=== PATIENT | female | born 1990 | race Caucasian/White ===

== ENCOUNTER 2016-06-08 18:12 | Emergency (ER) | payer OTHER ==
[2016-06-08 18:19] VITALS: BP 125/70; PULSE 92; TEMP 98.8; BMI 29.2
[2016-06-08 21:12] LABS: BASOPHIL 0.6 % (0-2.0); EOSINOPHIL 1.1 % (0-4.5); MCH 26.2 pg (25.7-33.7); MCHC 32.5 g/dl (32.0-36.0); MEAN CELL VOLUME 80.6 fl (80-96); MEAN PLT VOLUME 8.3 fl (7.5-11.1); NEUTROPHILS 60.5 % (42.8-82.8); PLATELET COUNT 321 K/MM3 (134-434); RDW 16.7 % (11.6-15.6); WHITE BLOOD COUNT 7.9 K/mm3 (4.0-10.0)
--- NOTE | 2016-06-08 22:18 | PDOC ---
[id number] /VAGINAL BLEEDING Time Seen by Provider: 06/08/16 20:25 - History of Present Illness Initial Comments: 06/08/16 22:13 CHIEF COMPLAINT: vaginal bleeding HISTORY OF PRESENT ILLNESS: 25 yo 4 week F with no PMH presents to ED for vaginal bleeding since this afternoon. Patient states she went to [facility] yesterday and was told she was approximately 4 weeks . Today she felt a little cramping to her R side and at 3 pm she went to the bathroom and had vaginal bleeding. She reports "at first it seemed like a lot, and then when I got home from work it seemed to have stopped but there's still a little bleeding." She denies any fever, chills, nausea, vomiting diarrhea, or urinary frequency, pain, or blood in urine. No recent travel or sick contacts. PAST MEDICAL HISTORY: Denies past medical history FAMILY HISTORY: Denies SOCIAL HISTORY: Denies tobacco, alcohol, illicit drug use. SURGICAL HISTORY: Denies ALLERGIES: No known drug allergies REVIEW OF SYSTEMS General/Constitutional: Denies fever or chills. Denies weakness, weight change. HEENT: Denies change in vision. Denies ear pain or discharge. Denies sore throat. Cardiovascular: Denies chest pain or shortness of breath. Respiratory: Denies cough, wheezing, or hemoptysis. Gastrointestinal: Denies nausea, vomiting, diarrhea or constipation. Denies rectal bleeding. Genitourinary: Vaginal bleeding since 3 pm. Denies dysuria, frequency, or change in urination. Musculoskeletal: Denies joint or muscle swelling or pain. Denies neck or back pain. Skin and breasts: Denies rash or easy bruising. Neurologic: Denies headache, vertigo, loss of consciousness, or loss of sensation. PHYSICAL EXAM General Appearance: Well-appearing, appropriately dressed. No apparent distress. HEENT: EOMI, PERRLA. No conjunctival pallor. No photophobia, scleral icterus. Respiratory/Chest: Lungs CTAB. Cardiovascular: RRR. S1, S2. Gastrointestinal/Abdominal: Normal bowel sounds. Abdomen soft, non-distended. No tenderness or rebound tenderness. No organomegaly, pulsatile mass, guarding, hernia, hepatomegaly, splenomegaly. Pelvic: External genitalia normal without lesions. Vaginal vault with moderate amount of bloody discharge. Cervix is long and closed. No cervical motion tenderness. Uterus is nontender and normal in size. Adnexa are nontender and without masses. Lymphatic: No adenopathy, tenderness. Musculoskeletal/Extremities: Normal inspection. FROM of all extremities, normal capillary refill. Pelvis Stable. No CVA tenderness. No tenderness to extremities, pedal edema, swelling, erythema or deformity. Integumentary: Appropriate color, dry, warm. No cyanosis, erythema, jaundice or rash Neurologic: currency examiner II-XII intact. Fully oriented, alert. Appropriate mood/affect. Motor strength 5/5. No appreciable EOM palsy, facial droop or sensory deficit. 06/09/16 00:00 Past History - Past Medical History Allergies/Adverse Reactions: Allergies Allergy/AdvReac Type Severity Reaction Status Date / Time No Known Allergies Allergy Verified 06/08/16 18:16 Home Medications: Ambulatory Orders Iron 325 mg PO DAILY 09/12/15 Cephalexin Monohydrate [Keflex -] 500 mg PO BID #14 capsule 01/30/16 Anemia: Yes Suicide Attempt (Hx): No - Surgical History Appendectomy: Yes - Reproductive History Is Patient Now?: Yes (#): 5 Para: 3 Therapeutic (s) & number: Yes Spontaneous : 2 - Immunization History Immunization Up to Date: Yes - Psycho/Social/Smoking Cessation Hx Anxiety: No Suicidal Ideation: No Smoking History: Never smoked Have you smoked in the past 12 months: No Information on smoking cessation initiated: No Hx Alcohol Use: No Drug/Substance Use Hx: No Substance Use Type: None *Physical Exam - Vital Signs Last Vital Signs Temp Pulse Resp BP Pulse Ox 98.8 F 92 H 18 125/70 100 06/08/16 18:17 06/08/16 18:17 06/08/16 18:17 06/08/16 18:17 06/08/16 18:17 ED Treatment Course - LABORATORY CBC & Chemistry Diagram: 06/08/16 20:56 - ADDITIONAL ORDERS Additional order review: Laboratory Results 06/08/16 06/08/16 20:56 20:46 Beta HCG, Quant 986.8 Blood Type O POSITIVE Antibody Screen Negative 06/08/16 20:56 RBC 3.95 MCV 80.6 MCHC 32.5 RDW 16.7 H D MPV 8.3 Neutrophils % 60.5 Lymphocytes % 28.7 Monocytes % 9.1 Eosinophils % 1.1 Basophils % 0.6 - RADIOLOGY Radiology Studies Ordered: Category Date Time Status TRANSVAGINAL US PREG [US] Stat Ultrasound 06/08/16 20:48 Ordered Medical Decision Making - Medical Decision Making 06/08/16 22:17 25 yo 4 wk F presents to ED with vaginal bleeding since this afternoon. -CBC, CMP, T&S, beta hCG -TV US beta hcg 938 Patient's blood type is O+, no indication for Rhogam. Ultrassound results: Uterus is anteverted and measures 9.2centimeters in length early IUP with estimated age of 5 weeks and 6 days. There is no heart rate , possibly due to early gestational age. No subchorionic bleed identified. The right ovary measures 2.2centimeters in length, appears normal and demonstrates normal flow. Left ovary measures 1.9centimeters in length appears normal demonstrates normal flow. There is no significant free fluid. Pelvic duplex: There is normal arterial and venous flow in both ovaries. IMPRESSION: Single IUP with estimated age 5 weeks status without cardiac motion, possibly due to very early . Recommend followup sonography to ensure viability. Read by Loco Aponte MD 06/08/2016 23:14 EST Advised patient that she MUST return to ER for repeat bloodwork in 2 days to monitor progress of . Advised patient of signs and symptoms for return to ER; patient verbalized understanding and agrees to plan. \\ *DC/Admit/Observation/Transfer Diagnosis at time of Disposition: Threatened in early - Discharge Dispostion Disposition: HOME Admit: No - Referrals Referrals: Peyton Joel [Primary Care Provider] - Olaf Mancini MD [Staff Physician] - - Patient Instructions Printed Discharge Instructions: DI for Threatened Additional Instructions: You MUST follow-up in 2 days for a repeat blood test in order to monitor the progress of your . If you experience severe vaginal bleeding (more than one soaked pad an hour), severe pain to one side, persistent vomiting or diarrhea, fever, or any new or worsening symptoms, please return to the ER.
== END 2016-06-09 00:34 | disposition home or self-care (01) ==
LOC: JER 18:12
DX: O20.0 Threatened abortion (principal); Z3A.01 Less than 8 weeks gestation of pregnancy
CPT/HCPCS: 36415; 76817-TC; 84702; 85025; 86850; 86900; 86901; 87491; 87591; 99282-25

== ENCOUNTER 2016-08-23 13:44 | Emergency (ER) | payer OTHER ==
[2016-08-23 13:52] VITALS: BP 141/91; PULSE 125; TEMP 99; BMI 32.0
--- NOTE | 2016-08-23 13:59 | PDOC ---
History of Present Illness - General Chief Complaint: Respiratory Stated Complaint: COLD SYMPTOMS Time Seen by Provider: 08/23/16 13:56 History Source: Patient - History of Present Illness Initial Comments: 08/23/16 14:16 Pt. is a 25 y/o female with a PMH of anemia, presenting to the ED complaining of cough. She also presents for HIV testing at this time. Pt. states her cough started 3 days ago. States it is a dry, non-productive cough. Admits to rhinorrhea, dry eyes, and sneezing. Denies history of seasonal allergies. Denies fevers, chills, weight change, chest pain, palpitations, SOB, wheezing, N /V/D. Pt. presents for HIV testing today. 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 She is nervous that she has HIV. Denies blood to blood transmission, needle sticks, or saliva transmission. Past History - Past Medical History Allergies/Adverse Reactions: Allergies Allergy/AdvReac Type Severity Reaction Status Date / Time No Known Allergies Allergy Verified 08/23/16 13:49 Home Medications: Ambulatory Orders Iron 325 mg PO DAILY 09/12/15 Cephalexin Monohydrate [Keflex -] 500 mg PO BID #14 capsule 01/30/16 Anemia: Yes Suicide Attempt (Hx): No - Surgical History Appendectomy: Yes - Reproductive History (#): 5 Para: 3 Therapeutic (s) & number: Yes Spontaneous : 2 - Immunization History Immunization Up to Date: Yes - Psycho/Social/Smoking Cessation Hx Anxiety: No Suicidal Ideation: No Smoking History: Never smoked Have you smoked in the past 12 months: No Information on smoking cessation initiated: No Hx Alcohol Use: No Drug/Substance Use Hx: No Substance Use Type: None *Physical Exam - Vital Signs Last Vital Signs Temp Pulse Resp BP Pulse Ox 99 F 125 H 20 141/91 100 08/23/16 13:49 08/23/16 13:49 08/23/16 13:49 08/23/16 13:49 08/23/16 13:49 - Physical Exam General Appearance: Yes: Nourished, Appropriately Dressed HEENT: positive: EOMI, BELINDA, Normal Voice, Pharynx Normal, Nasal Congestion, Rhinorrhea, TM Dull (Serous fluid present behind both TM's ). negative: Tonsillar Exudate, Tonsillar Erythema, TM Bulging, TM Erythema Neck: positive: Trachea midline, Normal Thyroid, Supple. negative: Tender, Lymphadenopathy (R), Lymphadenopathy (L) Respiratory/Chest: positive: Lungs Clear, Normal Breath Sounds. negative: Respiratory Distress, Accessory Muscle Use, Rales, Rhonchi, Wheezing Cardiovascular: positive: Regular Rhythm, Regular Rate, S1, S2 (present) Neurologic: positive: distribution center associate II-XII NML intact, Fully Oriented, Alert, Normal Mood/ Affect, Normal Response, Motor Strength 5/5 Medical Decision Making - Medical Decision Making 08/23/16 14:43 Pt. is a 25 y/o female with a PMH of anemia who presents with cough and wanting HIV testing. Based on exam and history, cough seems to be allergy related. Will give decongestant now. Recommend pt take an antihistamine as an out patient. Will order HIV rapid testing. 08/23/16 15:22 HIV is negative at this time. Pt. was made aware of results and education regarding transmission was given. Will discharge home at this time. *DC/Admit/Observation/Transfer Diagnosis at time of Disposition: Encounter for HIV (human immunodeficiency virus) test Seasonal allergic rhinitis Qualifiers: Allergic rhinitis trigger: unspecified Qualified Code(s): J30.2 - Other seasonal allergic rhinitis - Discharge Dispostion Disposition: HOME Condition at time of disposition: Stable Admit: No - Referrals Referrals: Cyrus Joel MD [Primary Care Provider] - - Patient Instructions Additional Instructions: Your testing today was negative. You also have seasonal allergies that are causing your cough. Take an over the counter histamine such as Claratin or Zyrtec daily to help your symptoms. You may also use an over the counter nasal spray such as Nasonex to help with your congestion. If you develop worsening symptoms such as increasing cough, difficulty breathing , or shortness of breath, return to the ED.
[2016-08-23] MEDS ORDERED: guaiFENesin 200 MG/10 ML 10 ML UNIT-DOSE CUPS PO ONE (14:12)
[2016-08-23] MEDS ORDERED: guaiFENesin/D-METHORPHAN HB 10 ML UNIT-DOSE CUPS ONE (14:15)
[2016-08-23 15:16] LABS: HIV 1 & 2 AB NEGATIVE; HIV 1 AGp24 NEGATIVE
== END 2016-08-23 15:32 | disposition home or self-care (01) ==
LOC: JERFT 13:44
DX: J30.2 Other seasonal allergic rhinitis (principal)
CPT/HCPCS: 36415; 87389; 99281-25

== ENCOUNTER 2017-05-01 18:10 | Emergency (ER) | payer OTHER ==
[2017-05-01 18:20] VITALS: BP 115/71; PULSE 99; TEMP 98.4; BMI 30.2
--- NOTE | 2017-05-01 18:22 | PDOC ---
Rapid Medical Evaluation Chief Complaint: Lightheaded Time Seen by Provider: 05/01/17 18:21 Medical Evaluation: Allergies Allergy/AdvReac Type Severity Reaction Status Date / Time No Known Allergies Allergy Verified 05/01/17 18:20 Vital Signs Temp Pulse Resp BP Pulse Ox 98.4 F 99 H 19 115/71 100 05/01/17 18:17 05/01/17 18:17 05/01/17 18:17 05/01/17 18:17 05/01/17 18:17 05/01/17 18:21 The patient presents with a chief complaint of: Dizziness, lightheadedness for one day. 22 weeks with twins. No vaginal bleeding, abdominal pain. I have performed a brief in-person evaluation of this patient; Pertinent physical exam findings: Tachycardic at 99 I have ordered the following: CBC, CMP, UA, UC The patient will proceed to the ED for further evaluation. Discharge Disposition - Diagnosis Dizziness - Discharge Dispostion Disposition: HOME Condition at time of disposition: Stable - Prescriptions Prescriptions: Metoclopramide HCl [Reglan] 10 mg PO QID #30 tablet - Referrals Referrals: Dereje Hawkins MD [Staff Physician] - Cyrus Joel MD [Primary Care Provider] - - Patient Instructions Printed Discharge Instructions: DI for Dizziness-Nonvertigo Additional Instructions: Follow up with your doctor ( water resource agent) or the one provided to you. Please eat well. Rest, drink fluids to maintain strength. Return if any problems. - Post Discharge Activity
[2017-05-01 19:39] LABS: URINE APPEARANCE SLCLOUDY; URINE BILIRUBIN NEGATIVE (NEGATIVE); URINE BLOOD NEGATIVE (NEGATIVE); URINE COLOR YELLOW; URINE GLUCOSE (UA) NEGATIVE (NEGATIVE); URINE KETONE NEGATIVE (NEGATIVE); URINE LEUK ESTERASE NEGATIVE (NEGATIVE); URINE NITRITE NEGATIVE (NEGATIVE); URINE PROTEIN NEGATIVE (NEGATIVE); URINE UROBILINOGEN NEGATIVE mg/dL (0.2-1.0)
[2017-05-01 20:04] LABS: CHLORIDE 104 mmol/L (98-107); POTASSIUM 3.4 mmol/L (3.5-5.1); SODIUM 136 mmol/L (136-145)
[2017-05-01 20:07] LABS: HEMATOCRIT 32.7 % (32.4-45.2); HEMOGLOBIN 10.7 GM/dL (10.7-15.3); MCH 28.2 pg (25.7-33.7); MCHC 32.6 g/dl (32.0-36.0); MEAN CELL VOLUME 86.6 fl (80-96); PLATELET COUNT 244 K/MM3 (134-434); RBC 3.77 M/mm3 (3.60-5.2); RDW 13.5 % (11.6-15.6); WHITE BLOOD COUNT 16.3 K/mm3 (4.0-10.0)
[2017-05-01 20:08] LABS: BASO % 0.1 % (0-2.0); EOS % 0.5 % (0-4.5); LYMPH % 9.7 % (8-40); MEAN PLT VOLUME 8.5 fl (7.5-11.1); MONO % 6.2 % (3.8-10.2); NEUT % 83.5 % (42.8-82.8)
[2017-05-01 20:22] LABS: ALBUMIN 2.7 g/dl (3.4-5.0); ALK PHOS 110 U/L (45-117); ANION GAP 7 (8-16); BILIRUBIN,TOTAL 0.3 mg/dL (0.2-1.0); BLOOD UREA NITROGEN 5 mg/dL (7-18); CALCIUM 9.3 mg/dL (8.5-10.1); CO2 25 mmol/L (21-32); CREATININE 0.5 mg/dL (0.55-1.02); GLUCOSE,RANDOM 85 mg/dL (74-106); SGOT/AST 14 U/L (15-37); SGPT/ALT 15 U/L (12-78); TOT PROT 6.8 g/dl (6.4-8.2)
--- NOTE | 2017-05-01 21:57 | PDOC ---
History of Present Illness - General History Source: Patient <Awais Lora - Last Filed: 05/01/17 22:05> - General History Source: Patient Exam Limitations: No Limitations - History of Present Illness Initial Comments: 05/01/17 22:11 The patient is a 26 year old female who is 22 weeks with a significant PMH of anemia and chronic pelvic/back pain since the onset of this most recent who presents to the emergency department with 2 episodes of dizziness earlier today. The patient reports that her first episode was at 11AM, where she stood up from a sitting position and felt dizzy with associated shortness of breath that resolved on its own. She reports her second episode of dizziness was this afternoon which did not include shortness of breath. She denies any alleviating or aggravating factors. The patient denies dizziness at presentation. She also notes decreased appetite within the past 2 weeks. The patient reports she is on pre-ezra vitamins and iron currently. The patient denies any vaginal bleeding or discharge. The patient denies chest pain and headache. Denies fever, chills, nausea, vomit, diarrhea and constipation. Denies dysuria, frequency, urgency and hematuria. Allergies: NKA Past surgical history: Appendectomy. Social history: No reported cigarette, alcohol, or drug use. PCP: Dr. Cyrus Joel <Rainer Fuentes - Last Filed: 05/01/17 22:12> - General Chief Complaint: Lightheaded Stated Complaint: DIZZINESS/22 WKS Time Seen by Provider: 05/01/17 18:21 Past History - Past Medical History Anemia: Yes COPD: No - Surgical History Appendectomy: Yes - Reproductive History (#): 5 Para: 3 Therapeutic (s) & number: Yes Spontaneous : 2 - Immunization History Immunization Up to Date: Yes - Suicide/Smoking/Psychosocial Hx Smoking History: Never smoked Have you smoked in the past 12 months: No Information on smoking cessation initiated: No Hx Alcohol Use: No Drug/Substance Use Hx: No Substance Use Type: None <Awais Lora - Last Filed: 05/01/17 22:05> <Rainer Fuentes - Last Filed: 05/01/17 22:12> - Past Medical History Allergies/Adverse Reactions: Allergies Allergy/AdvReac Type Severity Reaction Status Date / Time No Known Allergies Allergy Verified 05/01/17 18:20 Home Medications: Ambulatory Orders Iron 325 mg PO DAILY 09/12/15 Metoclopramide HCl [Reglan] 10 mg PO QID #30 tablet 05/01/17 Prenat 115/Iron Fum/Folic/Dss [ 19 Tablet] 1 each PO DAILY 05/01/17 Review of Systems - Review of Systems Able to Perform ROS?: Yes Comments:: 05/01/17 22:11 CONSTITUTIONAL: (+) Reduced appetite. Absent: fever, chills, diaphoresis, generalized weakness, malaise HEENT: Absent: rhinorrhea, nasal congestion, throat pain, throat swelling, difficulty swallowing, mouth swelling, ear pain, eye pain, visual Changes CARDIOVASCULAR: Absent: chest pain, syncope, palpitations, irregular heart rate, lightheadedness , peripheral edema RESPIRATORY: Absent: cough, shortness of breath, dyspnea with exertion, orthopnea, wheezing, stridor, hemoptysis GASTROINTESTINAL: Absent: abdominal pain, abdominal distension, nausea, vomiting, diarrhea, constipation, melena, hematochezia GENITOURINARY: Absent: dysuria, frequency, urgency, hesitancy, hematuria, flank pain, genital pain MUSCULOSKELETAL: Absent: myalgia, arthralgia, joint swelling SKIN: Absent: rash, itching, pallor HEMATOLOGIC/IMMUNOLOGIC: Absent: easy bleeding, easy bruising, lymphadenopathy, frequent infections ENDOCRINE: Absent: unexplained weight gain, unexplained weight loss, heat intolerance, cold intolerance NEUROLOGIC: (+) 2 episodes of dizziness today. Absent: headache, focal weakness or paresthesias, unsteady gait, seizure, mental status changes, bladder or bowel incontinence PSYCHIATRIC: Absent: anxiety, depression, suicidal or homicidal ideation, hallucinations. <Rainer Fuentes - Last Filed: 05/01/17 22:12> *Physical Exam - Vital Signs Last Vital Signs Temp Pulse Resp BP Pulse Ox 98.4 F 99 H 115/71 100 05/01/17 18:17 05/01/17 18:17 05/01/17 18:17 05/01/17 18:17 05/01/17 18:17 <Awais Lora - Last Filed: 05/01/17 22:05> - Vital Signs Last Vital Signs Temp Pulse Resp BP Pulse Ox 98.4 F 99 H 19 115/71 100 05/01/17 18:17 05/01/17 18:17 05/01/17 18:17 05/01/17 18:17 05/01/17 18:17 - Physical Exam Comments: 05/01/17 22:11 GENERAL: Well developed, well nourished. Awake and alert. No acute distress. HEENT: Normocephalic, atraumatic. PERRLA, EOMI. No conjunctival pallor. Sclera are non- icteric. Moist mucous membranes. Oropharynx is clear. NECK: Supple. Full ROM. No JVD. Carotid pulses 2+ and symmetric, without bruits. No thyromegaly. No lymphadenopathy. CARDIOVASCULAR: Regular rate and rhythm. No murmurs, rubs, or gallops. Distal pulses are 2+ and symmetric. PULMONARY: No evidence of respiratory distress. Lungs clear to auscultation bilaterally. No wheezing, rales or rhonchi. ABDOMINAL: Soft. Non-tender. Non-distended. No rebound or guarding. No organomegaly. Normoactive bowel sounds. MUSCULOSKELETAL Normal range of motion at all joints. No bony deformities or tenderness. No CVA tenderness. EXTREMITIES: No cyanosis. No clubbing. No edema. No calf tenderness. SKIN: Warm and dry. Normal capillary refill. No rashes. No jaundice. NEUROLOGICAL: Alert, awake, appropriate. Cranial nerves 2-12 intact. No deficits to light touch and temperature in face, upper extremities and lower extremities. No motor deficits in the in face, upper extremities and lower extremities. Normoreflexic in the upper and lower extremities. Normal speech. Toes are down- going bilaterally. Gait is normal without ataxia. PSYCHIATRIC: Cooperative. Good eye contact. Appropriate mood and affect. <Rainer Fuentes - Last Filed: 05/01/17 22:12> ED Treatment Course - LABORATORY CBC & Chemistry Diagram: 05/01/17 19:03 05/01/17 19:03 - ADDITIONAL ORDERS Additional order review: Laboratory Results 05/01/17 05/01/17 19:03 18:50 Sodium 136 Potassium 3.4 L Chloride 104 Carbon Dioxide 25 Anion Gap 7 L BUN 5 L Creatinine 0.5 L Creat Clearance w eGFR > 60 Random Glucose 85 Calcium 9.3 Total Bilirubin 0.3 D AST 14 L ALT 15 Alkaline Phosphatase 110 Total Protein 6.8 Albumin 2.7 L Urine Color Yellow Urine Appearance Slcloudy Urine pH 6.0 Ur Specific Bradshaw 1.016 Urine Protein Negative Urine Glucose (UA) Negative Urine Ketones Negative Urine Blood Negative Urine Nitrite Negative Urine Bilirubin Negative Urine Urobilinogen Negative Ur Leukocyte Esterase Negative 05/01/17 19:03 RBC 3.77 MCV 86.6 MCHC 32.6 RDW 13.5 D MPV 8.5 Neutrophils % 83.5 H D Lymphocytes % 9.7 D Monocytes % 6.2 Eosinophils % 0.5 Basophils % 0.1 <Awais Lora - Last Filed: 05/01/17 22:05> - LABORATORY CBC & Chemistry Diagram: 05/01/17 19:03 05/01/17 19:03 - ADDITIONAL ORDERS Additional order review: Laboratory Results 05/01/17 05/01/17 19:03 18:50 Sodium 136 Potassium 3.4 L Chloride 104 Carbon Dioxide 25 Anion Gap 7 L BUN 5 L Creatinine 0.5 L Creat Clearance w eGFR > 60 Random Glucose 85 Calcium 9.3 Total Bilirubin 0.3 D AST 14 L ALT 15 Alkaline Phosphatase 110 Total Protein 6.8 Albumin 2.7 L Urine Color Yellow Urine Appearance Slcloudy Urine pH 6.0 Ur Specific Bradshaw 1.016 Urine Protein Negative Urine Glucose (UA) Negative Urine Ketones Negative Urine Blood Negative Urine Nitrite Negative Urine Bilirubin Negative Urine Urobilinogen Negative Ur Leukocyte Esterase Negative 05/01/17 19:03 RBC 3.77 MCV 86.6 MCHC 32.6 RDW 13.5 D MPV 8.5 Neutrophils % 83.5 H D Lymphocytes % 9.7 D Monocytes % 6.2 Eosinophils % 0.5 Basophils % 0.1 <Rainer Fuentes - Last Filed: 05/01/17 22:12> Medical Decision Making - Medical Decision Making 05/01/17 22:08 Dr. Lora: The scribe's documentation has been prepared under my direction and personally reviewed by me in its entirery. I confirm that the note above accurately reflects all work, treatment, procedures, and medical decision making performed by me. <Awais Lora - Last Filed: 05/01/17 22:05> *DC/Admit/Observation/Transfer - Discharge Dispostion Admit: No <Awais Lora - Last Filed: 05/01/17 22:05> - Attestations Scribe Attestion: 05/01/17 22:12 Documentation prepared by Rainer Fuentes, acting as medical director of hospice for Awais Lora DO. <Rainer Fuentes - Last Filed: 05/01/17 22:12> Diagnosis at time of Disposition: Dizziness - Discharge Dispostion Disposition: HOME Condition at time of disposition: Stable - Prescriptions Prescriptions: Metoclopramide HCl [Reglan] 10 mg PO QID #30 tablet - Referrals Referrals: Cyrus Joel MD [Primary Care Provider] - Dereje Hawkins MD [Staff Physician] - - Patient Instructions Printed Discharge Instructions: DI for Dizziness-Nonvertigo Additional Instructions: Follow up with your doctor ( casino floor walker) or the one provided to you. Please eat well. Rest, drink fluids to maintain strength. Return if any problems. - Post Discharge Activity
== END 2017-05-01 22:30 | disposition home or self-care (01) ==
LOC: JER 18:10
DX: O26.892 Other specified pregnancy related conditions, second trimester (principal); R42 Dizziness and giddiness; Z3A.22 22 weeks gestation of pregnancy
CPT/HCPCS: 36415; 80053; 81003; 85025; 87086; 99282-25

== ENCOUNTER 2017-05-08 08:51 | Emergency (ER) | payer OTHER ==
[2017-05-08 08:59] VITALS: BMI 29.2
[2017-05-08 11:22] LABS: URINE APPEARANCE SLCLOUDY; URINE BILIRUBIN NEGATIVE (NEGATIVE); URINE BLOOD NEGATIVE (NEGATIVE); URINE COLOR LTYELLOW; URINE GLUCOSE (UA) NEGATIVE (NEGATIVE); URINE KETONE NEGATIVE (NEGATIVE); URINE LEUK ESTERASE NEGATIVE (NEGATIVE); URINE NITRITE NEGATIVE (NEGATIVE); URINE PROTEIN NEGATIVE (NEGATIVE); URINE UROBILINOGEN NEGATIVE mg/dL (0.2-1.0)
[2017-05-08 11:24] LABS: BASO % 0.1 % (0-2.0); EOS % 0.5 % (0-4.5); HEMATOCRIT 29.5 % (32.4-45.2); HEMOGLOBIN 9.6 GM/dL (10.7-15.3); LYMPH % 9.9 % (8-40); MCH 27.5 pg (25.7-33.7); MCHC 32.5 g/dl (32.0-36.0); MEAN CELL VOLUME 84.4 fl (80-96); MEAN PLT VOLUME 8.1 fl (7.5-11.1); MONO % 6.6 % (3.8-10.2); NEUT % 82.9 % (42.8-82.8); PLATELET COUNT 210 K/MM3 (134-434); RDW 13.7 % (11.6-15.6); WHITE BLOOD COUNT 14.8 K/mm3 (4.0-10.0)
[2017-05-08] MEDS ORDERED: DEXTROSE 5%-LACTATED RINGERS 1,000 ML IV SCH (11:45)
[2017-05-08 11:46] LABS: ALBUMIN 2.5 g/dl (3.4-5.0); ANION GAP 9 (8-16); CALCIUM 9.1 mg/dL (8.5-10.1); CHLORIDE 106 mmol/L (98-107); CO2 24 mmol/L (21-32); GLUCOSE,RANDOM 70 mg/dL (74-106); POTASSIUM 3.4 mmol/L (3.5-5.1); SODIUM 139 mmol/L (136-145)
[2017-05-08 11:51] LABS: ALK PHOS 105 U/L (45-117); BILIRUBIN,TOTAL 0.5 mg/dL (0.2-1.0); CREATININE 0.3 mg/dL (0.55-1.02); SGOT/AST 15 U/L (15-37); SGPT/ALT 16 U/L (12-78); TOT PROT 6.3 g/dl (6.4-8.2)
[2017-05-08 11:53] LABS: BLOOD UREA NITROGEN 2 mg/dL (7-18)
[2017-05-08 15:06] VITALS: BP 112/60; PULSE 81; TEMP 98.1
== END 2017-05-08 14:05 | disposition home or self-care (01) ==
LOC: JER 08:51
DX: O26.892 Other specified pregnancy related conditions, second trimester (principal); R10.30 Lower abdominal pain, unspecified; Z3A.23 23 weeks gestation of pregnancy
CPT/HCPCS: 36415; 80053; 81003; 85025; 99281-25

== ENCOUNTER 2017-07-26 23:55 | Inpatient (IN) | payer OTHER ==
[2017-07-27] MEDS ORDERED: DEXTROSE 5%-LACTATED RINGERS 1,000 ML IV SCH ×2 (01:00→07:30)
--- NOTE | 2017-07-27 01:00 | HP ---
Past Medical History - Primary Care Physician PCP:: Kym Monteiro - Admission Chief Complaint: 26 yrs , edc 09/01/17 34.6 weeks , twins gestation c/o pain ( UC ) since 5.00 PM on 07/26/17. no c/o headache. c/o acid reflux. no c/ o urine symptoms History of Present Illness: pnc at , [facility] wt gain 14 lbs pt was evaluated on 07/24/17 in L &D by Dr Hawkins for threatened PTL & elevated BP she was given iV hydration & one inj of Terbutaline . Hellp work up was wnl , plt 163, , uric acid 6.9, sgot/ast-23, sgpt/alt -8, ggt 7, urine protein neg. Nst was cat-1 for both babies. BP range was 130-145 systolic/88-92 diastolic bp max was 147/96 pt has follow up with M for serial sonogram for growth Diamniotic dizygotic Twins ,Neg NT screen, Neg Moodified sequential last sono as per pt was on 07/23/17 no report available . 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 Weeks Gestation by Dates: 34.6 ...EDC by Dates: 09/01/17 ...EDC by Sono: 09/01/17 (Twins ) Heme/Onc: Yes: Anemia (non compliant with pnv & iron & diet) Infectious Disease: No: AIDS, HIV, STD's Psych: Yes: Other (declines) - Past Surgical History Past Surgical History: Yes: Appendectomy (2006) Hx Myomectomy: No Hx Transabdominal Cerclage: No - Smoking History Smoking history: Never smoked Have you smoked in the past 12 months: No - Alcohol/Substance Use Hx Alcohol Use: No History of Substance Use: reports: None Home Medications - Allergies Allergies/Adverse Reactions: Allergies Allergy/AdvReac Type Severity Reaction Status Date / Time No Known Allergies Allergy Verified 07/27/17 07:01 - Home Medications Home Medications: Ambulatory Orders Vit Calc,Iron,Folic [ Vitamins] 1 tab PO DAILY 07/27/17 Physical Exam - Maternity Vital Signs: Bp Constitutional: Yes: Moderate Distress Eyes: Yes: WNL HENT: Yes: WNL, Normocephalic Neck: Yes: WNL Cardiovascular: Yes: WNL, Murmur (systol) Lungs: Clear to auscultation Breast(s): Yes: WNL - Abdominal Exam/OB Fundal Height: 44 Number of Fetuses: Multiple Presentation: Vertex, Breech Contractions: Yes Regularity: Regular (3-5 min) Intensity: Moderate Monitor Mode: External Heart Rate (range): 157/146 Heart Rate Location: LUQ, RLQ Category: I Accelerations: Uniform Decelerations: None - Vaginal Exam/OB Vaginal Bleediing: No Speculum Exam: No Dilatation (cm): close Effacement (%): unefface Presentation: Vertex/Position Station: -3 - Physical Exam Musculoskeletal: Yes: WNL Extremities: Yes: WNL. No: Calf Tenderness Edema: LLE: Trace, RLE: Trace Deep Tendon Reflex Grade: Normal +2 Psychiatric: Yes: WNL, Alert, Oriented Problem List - Problems (1) with 34 completed weeks gestation Code(s): Z3A.34 - 34 WEEKS GESTATION OF (2) Twin , twins dichorionic and diamniotic Code(s): O30.049 - TWIN , DICHORIONIC/DIAMNIOTIC, UNSP TRIMESTER Qualifiers: Trimester: third trimester Qualified Code(s): O30.043 - Twin , dichorionic/diamniotic, third trimester (3) Threatened labor Code(s): O47.00 - FALSE LABOR BEFORE 37 COMPLETED WEEKS OF GEST, UNSP TRI (4) Gestational hypertension Code(s): O13.9 - GESTATIONAL HTN W/O SIGNIFICANT PROTEINURIA, UNSP TRIMESTER (5) Iron deficiency anemia due to dietary causes Code(s): D50.8 - OTHER IRON DEFICIENCY ANEMIAS Assessment/Plan 26 yrs , 34.6 weeks , twins cep/breech/ threatened PTL , gestational HTN , r/o preclempsia Plan iv hydration 200 ml/hr Procardia PRN for PTL Betamethasone 12.5 mg Iv reglan sono done prelimnary report : Twin A cephalic: Rt side, Post placenta, STEPHAN 6.1 cm, EFW 5'10" GA 34.2 wks Twin B Breech Lt side Ant Placenta, STEPHAN 7.4 cm,EFW 5'9" GA 35 wks cervical length 2.9 cm .
[2017-07-27 01:22] LABS: BASO % 0.2 % (0-2.0); EOS % 0.4 % (0-4.5); HEMATOCRIT 29.7 % (32.4-45.2); HEMOGLOBIN 9.4 GM/dL (10.7-15.3); LYMPH % 17.1 % (8-40); MCH 23.1 pg (25.7-33.7); MCHC 31.5 g/dl (32.0-36.0); MEAN CELL VOLUME 73.2 fl (80-96); MEAN PLT VOLUME 9.1 fl (7.5-11.1); MONO % 6.2 % (3.8-10.2); NEUT % 76.1 % (42.8-82.8); PLATELET COUNT 149 K/MM3 (134-434); RBC 4.06 M/mm3 (3.60-5.2); RDW 17.5 % (11.6-15.6); WHITE BLOOD COUNT 12.1 K/mm3 (4.0-10.0)
[2017-07-27 01:24] LABS: URINE APPEARANCE CLEAR; URINE BILIRUBIN NEGATIVE (<2.0 mg/dL); URINE BLOOD NEGATIVE (NEGATIVE); URINE COLOR STRAW; URINE GLUCOSE (UA) NEGATIVE (NEGATIVE); URINE KETONE NEGATIVE (NEGATIVE); URINE LEUK ESTERASE NEGATIVE (NEGATIVE); URINE NITRITE NEGATIVE (NEGATIVE); URINE PROTEIN NEGATIVE (NEGATIVE); URINE UROBILINOGEN NEGATIVE mg/dL (0.2-1.0)
[2017-07-27] MEDS ORDERED: METOCLOPRAMIDE HCL INJECTION 10 MG/2 ML VIAL IVPB ONE (01:28)
[2017-07-27] MEDS ORDERED: BETAMET ACET/BETAMET NA PH 30 MG/5 ML VIAL IM SCH (01:29)
[2017-07-27] MEDS ORDERED: BETAMET ACET/BETAMET NA PH 30 MG/5 ML VIAL ONE (01:33)
[2017-07-27] MEDS ORDERED: NIFEdipine 10 MG CAPSULE (FP) PO ONE ×4 (01:50→05:30)
[2017-07-27 02:09] LABS: ALBUMIN 2.4 g/dl (3.4-5.0); ANION GAP 13 (8-16); BILIRUBIN,TOTAL 0.5 mg/dL (0.2-1.0); BLOOD UREA NITROGEN 5 mg/dL (7-18); CALCIUM 9.7 mg/dL (8.5-10.1); CHLORIDE 105 mmol/L (98-107); CO2 23 mmol/L (21-32); CREATININE 0.6 mg/dL (0.55-1.02); GLUCOSE,RANDOM 64 mg/dL (74-106); POTASSIUM 3.6 mmol/L (3.5-5.1); SGOT/AST 23 U/L (15-37); SGPT/ALT 11 U/L (12-78); SODIUM 141 mmol/L (136-145); TOT PROT 6.6 g/dl (6.4-8.2); URIC ACID 6.5 mg/dL (2.6-7.2)
[2017-07-27 02:10] LABS: ALK PHOS 296 U/L (45-117)
[2017-07-27] MEDS ORDERED: NIFEdipine 10 MG CAPSULE (FP) ONE ×2 (02:46→03:43)
[2017-07-27] MEDS ORDERED: MAGNESIUM 4GM/H20 - 4 GM/100 ML IVPB IVPB SCH (07:30)
[2017-07-27] MEDS ORDERED: ONDANSETRON 4 MG/2 ML VIAL IVPB ONE (07:43)
--- NOTE | 2017-07-27 07:55 | PN ---
Progress Note (short form) - Note Progress Note: After IV hydration pt continued to have UC hence she received Po Procardia at 2.47 AM, , 3.46am, 5.36 AM she received IV reglan 10 mg once pt continues to have uc 2-4 min , FHR Baby A : cat-1 , Baby B cat-1 pt continues to have nausea & vomiting, mainly spitting she is uncomfortable repeat pelvic exam was done at 7.15 AM cx close , post, [place] , vx -3 Reflexes n/n . Selected Entries v/s pulse varies bet 104 to 126 BP 129/74 , 127/67,139/84 07/27/17 00:19 Temperature 98.9 F Pulse Rate [ 88 Left Brachial] Blood Pressure 146/80 [Left Upper Arm ] Laboratory Tests 07/24/17 07/24/17 07/27/17 12:00 12:05 01:10 WBC 12.1 H Hgb 9.4 L Hct 29.7 L Plt Count 149 Neutrophils % 76.1 Lymphocytes % 17.1 D Uric Acid 6.9 GGT 7 AST 23 ALT 8 L Urine Protein Negative Ur Leukocyte Esterase Trace 07/27/17 01:10 WBC Hgb Hct Plt Count Neutrophils % Lymphocytes % Uric Acid GGT AST ALT Urine Protein Negative Ur Leukocyte Esterase Laboratory Tests 07/27/17 01:10 Sodium 141 Potassium 3.6 Chloride 105 Carbon Dioxide 23 BUN 5 L Creatinine 0.6 Random Glucose 64 L Uric Acid 6.5 Calcium 9.7 AST 23 ALT 11 L Laboratory Tests 07/27/17 01:10 Urine Protein Negative Ass 35 weeks, twins( vx /Br) s/p iv hydration & po procardia , not responding to out patient management Plan Admit The patient , start IV MgSo4 4 gm loading dose followed by 2 gm/hr -Attempt tocolysis Repeat 2 nd dose of Im Betametasone in 24 hrs Problem List - Problems (1) with 34 completed weeks gestation Code(s): Z3A.34 - 34 WEEKS GESTATION OF (2) Twin , twins dichorionic and diamniotic Code(s): O30.049 - TWIN , DICHORIONIC/DIAMNIOTIC, UNSP TRIMESTER Qualifiers: Trimester: third trimester Qualified Code(s): O30.043 - Twin , dichorionic/diamniotic, third trimester (3) Threatened labor Code(s): O47.00 - FALSE LABOR BEFORE 37 COMPLETED WEEKS OF GEST, UNSP TRI (4) Gestational hypertension Code(s): O13.9 - GESTATIONAL HTN W/O SIGNIFICANT PROTEINURIA, UNSP TRIMESTER (5) Iron deficiency anemia due to dietary causes Code(s): D50.8 - OTHER IRON DEFICIENCY ANEMIAS
[2017-07-27] MEDS ORDERED: MAGNESIUM SULFATE 20GM/500ML - 20 GM/500 ML INFUS.BAG IVPB SCH (08:00)
[2017-07-27] MEDS ORDERED: NALOXONE HCL 0.4 MG/ML VIAL IVPUSH PRN (08:14)
[2017-07-27] MEDS ORDERED: FENTANYL/BUPIVACAINE/NS/PF - PCEA - 50 ML DISP.SYRIN EP SCH (08:15)
[2017-07-27 08:41] VITALS: BMI 33.6
[2017-07-27] MEDS ORDERED: CITRIC ACID/SODIUM CITRATE 30 ML UNIT-DOSE CUP PO ONE (09:01)
--- NOTE | 2017-07-27 09:01 | PN ---
Progress Note (short form) - Note Progress Note: 8.50 AM UC are regular 2-3 min after completing MgSo4 loading dose followed by 2 gm /hr repeat pelvic exam : 1cm/50 % /Mi 'Vx /-3 pt very uncomfortable, vomiting T98.7.. Bp 164/86, pulse 89/min Imp latent labor 34-35 weeks gestation , twins di/di vx/br failed tocolysis Plan : discuss with molding fitter , Torrey Grady to deliver here patient informed , she agrees for c/section Problem List - Problems (1) with 34 completed weeks gestation Code(s): Z3A.34 - 34 WEEKS GESTATION OF (2) Twin , twins dichorionic and diamniotic Code(s): O30.049 - TWIN , DICHORIONIC/DIAMNIOTIC, UNSP TRIMESTER Qualifiers: Trimester: third trimester Qualified Code(s): O30.043 - Twin , dichorionic/diamniotic, third trimester (3) Threatened labor Code(s): O47.00 - FALSE LABOR BEFORE 37 COMPLETED WEEKS OF GEST, UNSP TRI (4) Gestational hypertension Code(s): O13.9 - GESTATIONAL HTN W/O SIGNIFICANT PROTEINURIA, UNSP TRIMESTER (5) Iron deficiency anemia due to dietary causes Code(s): D50.8 - OTHER IRON DEFICIENCY ANEMIAS (6) labor in third trimester Code(s): O60.03 - LABOR WITHOUT DELIVERY, THIRD TRIMESTER
[2017-07-27] MEDS ORDERED: ELECTROLYTE-148 SOLN 1,000 ML IV SCH (09:15)
[2017-07-27 09:34] LABS: INR 0.96 (0.82-1.09); PROTHROMBIN TIME (PATIENT) 10.8 SEC (9.98-11.88)
[2017-07-27 09:37] LABS: ACTIVATED PTT 28.5 SECONDS (26.9-34.4)
[2017-07-27] MEDS ORDERED: OXYTOCIN 20 UNITS in 0.9% NS 20 UNIT/1,000 ML INFUS.BAG IV ONE (09:57)
[2017-07-27] MEDS ORDERED: morphine SULFATE/Preservative Free 0.5 MG/ML (1cc Syringe) ONE (09:58)
[2017-07-27] MEDS ORDERED: BUPIVACAINE 0.75% IN DEXTROSE/PF 2ML AMPULE NR ONE (09:59)
[2017-07-27] MEDS ORDERED: OXYTOCIN 20 UNITS in 0.9% NS 40 UNIT/2,000 ML INFUS.BAG IV ONE (10:00)
[2017-07-27] MEDS ORDERED: SUCCINYLCHOLINE CHLORIDE 200 MG/10 ML VIAL ONE (10:01)
[2017-07-27] MEDS ORDERED: PROPOFOL 20 ML ONE (10:02)
[2017-07-27] MEDS ORDERED: OXYTOCIN 10 UNITS/ML VIAL ONE ×3 (10:18→10:34)
[2017-07-27] MEDS ORDERED: PHENYLEPHRINE HCL 10 MG/1 ML SINGLE DOSE VIAL ONE (10:18)
[2017-07-27] MEDS ORDERED: ceFAZolin SODIUM 1 GM VIAL ONE (10:18)
[2017-07-27] MEDS ORDERED: KETOROLAC TROMETHAMINE 30 MG/1 ML VIAL ONE (10:54)
[2017-07-27 11:14] LABS: VENOUS PC02 53.6 mmHg (38-52); VENOUS PH 7.29 (7.32-7.42); VENOUS PO2 13.5 mmHg (28-48)
[2017-07-27 11:15] LABS: ARTERIAL BLD GAS O2 SATURATION 31.7 % (90-98.9); ARTERIAL BLOOD GAS PCO2 48.2 mmHg (35-45); ARTERIAL BLOOD GAS PO2 18.3 mmHg (80-100); ARTERIAL BLOOD GAS pH 7.31 (7.35-7.45)
[2017-07-27 11:16] LABS: ARTERIAL BLOOD GAS BASE EXCESS -2.5 meq/l (-2-2)
[2017-07-27 11:20] LABS: ARTERIAL BLD GAS O2 SATURATION 7.9 % (90-98.9); ARTERIAL BLOOD GAS PO2 8.7 mmHg (80-100)
[2017-07-27 11:22] LABS: VENOUS PH 7.28 (7.32-7.42)
[2017-07-27 11:23] LABS: VENOUS PO2 12.6 mmHg (28-48)
[2017-07-27] MEDS ORDERED: METHYLERGONOVINE MALEATE 0.2 MG/1 ML AMP IM PRN (11:28)
[2017-07-27] MEDS ORDERED: IBUPROFEN 600 MG TABLET (FP) PO PRN ×2 (11:28→11:35)
[2017-07-27] MEDS ORDERED: OXYTOCIN 20 UNITS in 0.9% NS 20 UNIT/1,000 ML INFUS.BAG IV SCH (11:30)
[2017-07-27] MEDS ORDERED: ACETAMINOPHEN 325 MG TABLET (FP) PO PRN (11:35)
[2017-07-27] MEDS ORDERED: ONDANSETRON 4 MG/2 ML VIAL IVPUSH PRN (11:35)
--- NOTE | 2017-07-27 11:46 | OP ---
Operative Note - Note: Operative Date: 07/27/17 Pre-Operative Diagnosis: 34.6 weeks Twins, labor,failed tocolysis , vx /breech /gestational htn Operation: Primary Low Flap Transverse C/Section Findings: Baby A :Girl 10.32 AM , 8/9 , Wt 5'15", Ht 17" LOT position Baby B Boy 10.33 AM, 8/9 , Wt 5'6", Ht 18.5" Double Footling Breech Both Tubes & Ovaries are normal Dr Zuñiga senior insight manager present in the room Surgeon: Kym Monteiro Sizing Machine And Drier Operator: Hipolito Piedra Anesthesiologist/DOCK OR PIER LABORER: Jazmine Pichardo Anesthesia: Spinal Specimens Removed: Baby A Cord Segment for cord blood gas & cord blood. Baby B Cord segment for cord blood gas & cord blood. Placenta Dichorionic, Diamniotic Estimated Blood Loss (mls): 1,200 Drains, Volume Out (mls): 100 (flor out put kishore color ) Fluid Volume Replaced (mls): 2,000 (Iv Ancef 2 gm ivpb ) Operative Report Dictated: Yes
--- NOTE | 2017-07-27 12:11 | PN ---
Delivery - Delivery Section: Primary, Low Flap Transverse (Indication 34.5 weeks Twins vx/ br/ labor, Failed Tocolysis , gestational HTN) EBL (cc): 1,200 (flor output 100 ml clear ) Delivery, Single - Feeding Plan Initial Plan: Elected not to breastfeed exclusively throughout hospitalization Delivery, Multiple Births - Stages of Labor First Stage Date: 07/27/17 Time: 01:00 Delivery Baby "A" Date: 07/27/17 Time: 10:32 Placenta/Membranes "A" Date: 07/27/17 Time: 10:40 - Condition of Multiple Births [place] 1 (A) Division Manager/Senior Stereo Compiler Team Lead Present: Yes Division Manager: Rosa Zuñiga Gender: Female Weight: 5 lb 15 oz Position: Left, OT Total Hours ROM (HRS/MINS): 8 min Placenta: Yes: Expressed, Uterine Exploration (placenta diamniotic/dichorionic sent for pathology) [place] 2 (B) Division Manager/Senior Stereo Compiler Team Lead Present: Yes Division Manager: Rosa Zuñiga Gender: Male Weight: 5 lb 6 oz Position: Left, SA (double footling breech) Total Hours ROM (HRS/MINS): 7 min Placenta: Yes: Manual Removal, Uterine Exploration - 1 (A) 1 Minute Score: 8 1 (A) 5 Minutes Score: 9 2 (B) 1 Minute Score: 8 [place] 2 (B) 5 Minutes Score: 9 Remarks - Remarks Remarks: 26 yrs , 34.6 weeks , Twins Gestation Vx/breech , labor, Failed Tocolysis ( procardia 10 mg x3 doses followed by iv MgSo4 4gm loading dose followed by 2 gm/hr ) s/p Betamethasone inj 12.5 mg x1 dose Pt continued to have UC , dilatation of cervix started Intraop 2 gm iv Ancef prior to incision was given Iv pitocin 40 iu in 1000 ml of nsaline given in OR . Pt Intra op stable post op v/s pulse 87/min, BP 123/65,
--- NOTE | 2017-07-27 13:42 | OP ---
DATE OF OPERATION: 07/27/2017 PREOPERATIVE DIAGNOSIS: A 34-6/7 weeks twin gestation, labor, failed tocolysis, vertex breech presentation, and gestational hypertension. OPERATION DONE: Primary low flap transverse section. SURGEON: Kym Monteiro MD DISTANCE LEARNING UNIT LEADER SURGEON: RENU Partida ANESTHESIOLOGIST: Marino Lucero MD INTERIOR DESIGN FACULTY MEMBER: Rosa Zuñiga MD FINDINGS: This is a 26-year-old, 9, para 3-0-5-3, at 34-6/7 weeks, presented with contractions and blood pressure of 138/88. Patient continued to have contractions. She was very uncomfortable. She was given IV hydration, followed by Procardia 10 mg x3 doses 1 hour apart. Contractions continue so the patient was hospitalized. An intrapartum sonogram was done and it was reported as 34 weeks, A-baby was vertex and B-baby was breech presentation. Patient continued to have contractions. She was admitted, magnesium sulfate 4 g loading dose followed by 2 g maintenance dose was given. In spite of that, patient continued to have every q.2 to 3 minutes contraction, very uncomfortable, vomiting and nausea throughout the night. She was given IV Reglan and IV Zofran x1 dose of each and she also received betamethasone 1 time at arrival at around 2:30 in the morning patient was rechecked again and she was now 1 cm dilated and so it was decided to deliver her by section. Her blood pressure had shot to 166/89. PROCEDURE: The patient was taken to the operating room table. Abdomen was shaved, prepped. Before that, Barroso catheter was placed. Magnesium sulfate was discontinued and she was taken to the operating room table. Spinal anesthesia was given. Patient in supine position. Abdomen was painted and draped in usual manner and a Pfannenstiel incision was made through skin and subcutaneous tissue. Anterior rectus sheath was incised transversely. Bleeding points were clamped and cauterized. Rectus muscle was from the rectus sheath. Parietal peritoneum was opened vertically. Lower flap parietal peritoneum was incised transversely. Amniotic fluid was clear and the baby was delivered from the vertex LOT position. A-baby was a girl. The cord was clamped, cut, and a cord segment was collected for the cord blood gas. The cord blood was collected and cord was marked with one clamp. The baby 's weight was 5 pounds 1 ounce, was 8 and 9. Then the second sac was punctured. Amniotic fluid was clear. The baby, double footling breech, was delivered. The baby delivered was a breech presentation from the LST position, baby boy, weight was 5 pounds 6 ounces, 8 and 9. Cord clamp was applied and the cord segment was collected for cord blood gas and cord blood was collected and at this time the cord was marked with 2 clamps as repeat cord. Placentas were completely removed and the 2 placentas with the membranes were completely removed. Anesthesiologist was asked to add about 2 units of Pitocin in 1000 mL. Uterine cavity was cleaned and the closure of the incision was done. The first layer was closed with a Biosyn 0 suture, continuous locking sutures were taken. Second is a continuous intermittent locking with a Biosyn 0 suture, vertical mattress sutures were taken. Hemostasis was verified, and then bladder peritoneum was closed with a Biosyn 0 suture. Hemostatic sutures were required before closure of the bladder peritoneum in the left angle just proximal to the base of the bladder. Both tubes and ovaries were normal. Irrigation was done. The peritoneal cavity was cleaned of the blood clots and blood- stained fluid. Sponge, instrument count was correct. The closure of the abdomen was done. Parietal peritoneum was closed with a Vicryl 0 suture. Muscles were approximated together with interrupted Vicryl 0 sutures. The hemostasis was checked underneath the rectus sheath flaps. The rectus sheath was closed with a Vicryl 0 suture, continuous sutures were taken. The subcutaneous tissue, once again hemostasis was checked, and interrupted sutures were taken with a Biosyn 0 suture in subcutaneous tissue, and skin was approximated with debbie. Pressure dressing was given. Blood clots were removed from the vagina. Patient tolerated procedure well. She was transferred to the recovery room in stable condition. She received 2 g of IV Ancef prior to the incision. She received 2000 mL fluid. Her intraoperative urine output was 100 mL, it was kishore color. Estimated blood loss was 1200 mL. Zhen [id number] MTDD
[2017-07-27] MEDS: ACETAMINOPHEN 1000 MG/100 ML VIAL (NON FORMULARY) IVPB PRN (15:07)
[2017-07-27] MEDS: CEFAZOLIN 1 GM/D5W 1 GM/50 ML BAG IVPB SCH (17:39)
[2017-07-28] MEDS: ACETAMINOPHEN 1000 MG/100 ML VIAL (NON FORMULARY) IVPB PRN (00:35)
[2017-07-28] MEDS: CEFAZOLIN 1 GM/D5W 1 GM/50 ML BAG IVPB SCH ×2 (03:09→09:26)
--- NOTE | 2017-07-28 07:31 | PN ---
Post Progress Note - Subjective Subjective: c/o bloating of abdomen, acid reflux incision pain 4-5 has not voided since flor is taken out Post Day: 1 Type of Delivery: Primary C/S Vital Signs: Vital Signs Temperature 98.6 F 07/28/17 06:00 Pulse Rate 73 07/28/17 06:00 Respiratory Rate 20 07/28/17 06:00 Blood Pressure 137/86 07/28/17 06:00 O2 Sat by Pulse Oximetry (%) 99 07/27/17 12:45 Breast Exam: Yes: Soft, Other (will try to BF , pump ). No: Engorged Uterus: Yes: Fundus Firm, Fundus below umbilicus Incision: Yes: Dressing dry and intact. No: Oozing Abdomen/GI: Yes: Abdomen soft, Abdominal Distention (mild , BS active ), Tolerating PO (clear fluid ). No: Passing flatus Lochia, amount: Moderate Extremities: Yes: Calves non-tender, Edema (1+). No: Calf tenderness Perineum: Yes: Intact Activity: Other (not oob yet ) - Labs Labs: CBC WBC 12.1 K/mm3 (4.0-10.0) H 07/27/17 01:10 RBC 4.06 M/mm3 (3.60-5.2) 07/27/17 01:10 Hgb 9.4 GM/dL (10.7-15.3) L 07/27/17 01:10 Hct 29.7 % (32.4-45.2) L 07/27/17 01:10 MCV 73.2 fl (80-96) L 07/27/17 01:10 MCH 23.1 pg (25.7-33.7) L 07/27/17 01:10 MCHC 31.5 g/dl (32.0-36.0) L 07/27/17 01:10 RDW 17.5 % (11.6-15.6) H D 07/27/17 01:10 Plt Count 149 K/MM3 (134-434) 07/27/17 01:10 MPV 9.1 fl (7.5-11.1) D 07/27/17 01:10 Neutrophils % 76.1 % (42.8-82.8) 07/27/17 01:10 Lymphocytes % 17.1 % (8-40) D 07/27/17 01:10 Monocytes % 6.2 % (3.8-10.2) 07/27/17 01:10 Eosinophils % 0.4 % (0-4.5) 07/27/17 01:10 Basophils % 0.2 % (0-2.0) 07/27/17 01:10 Other Findings, Remarks: rs cta Urine outtput 600 ml i/o checked Problem List - Problems (1) with 34 completed weeks gestation Code(s): Z3A.34 - 34 WEEKS GESTATION OF (2) Twin , twins dichorionic and diamniotic Code(s): O30.049 - TWIN , DICHORIONIC/DIAMNIOTIC, UNSP TRIMESTER Qualifiers: Trimester: third trimester Qualified Code(s): O30.043 - Twin , dichorionic/diamniotic, third trimester (3) Threatened labor Code(s): O47.00 - FALSE LABOR BEFORE 37 COMPLETED WEEKS OF GEST, UNSP TRI (4) Gestational hypertension Code(s): O13.9 - GESTATIONAL HTN W/O SIGNIFICANT PROTEINURIA, UNSP TRIMESTER (5) Iron deficiency anemia due to dietary causes Code(s): D50.8 - OTHER IRON DEFICIENCY ANEMIAS (6) labor in third trimester Code(s): O60.03 - LABOR WITHOUT DELIVERY, THIRD TRIMESTER Assessment/Plan post primary c/s for twins day #1 stable . Plan CBC today pending encourage anbulation , oob, deep breathing, use incentive spirometer
[2017-07-28] MEDS ORDERED: LACTATED RINGERS SOLUTION 1,000 ML/1,000 ML INFUS.BAG IV SCH (07:45)
[2017-07-28 08:32] LABS: MCH 22.7 pg (25.7-33.7); MCHC 30.5 g/dl (32.0-36.0); MEAN CELL VOLUME 74.5 fl (80-96); PLATELET COUNT 137 K/MM3 (134-434); RBC 2.81 M/mm3 (3.60-5.2); RDW 17.4 % (11.6-15.6); WHITE BLOOD COUNT 23.1 K/mm3 (4.0-10.0)
[2017-07-28 08:41] LABS: HEMOGLOBIN 6.4 GM/dL (10.7-15.3)
--- NOTE | 2017-07-28 09:04 | PN ---
Progress Note (short form) - Note Progress Note: s/p primary c/section , anemia, , intraop hemorrhage ( 1200 Ml ) post op severe anemia Selected Entries 07/27/17 07:15 Temperature 98.0 F Pulse Rate 110 H Blood Pressure 148/88 Laboratory Tests 07/28/17 07:15 WBC 23.1 H D RBC 2.81 L D Hgb 6.4 L* D Hct 21.0 L D MCV 74.5 L MCH 22.7 L MCHC 30.5 L RDW 17.4 H Plt Count 137 MPV 9.0 07/28/17 time 9.00am BP 135/85, Pulse 73, Temp 99.3 pt does not c/o dizziness I explained r/b/a of transfusion & expectant management not ltd to dizziness, fainting spells, fatigue , sob, headache etc transfusion reaction, fever, chills, itching etc. She is informed blood bank checks for infections like hepatitis, hiv syphilis etc she asked my opinion if it is necessary, I advised, Yes . She wants to discuss with family , . patient finally made decision to accept 2 pack cell transfusions Problem List - Problems (1) with 34 completed weeks gestation Code(s): Z3A.34 - 34 WEEKS GESTATION OF (2) Twin , twins dichorionic and diamniotic Code(s): O30.049 - TWIN , DICHORIONIC/DIAMNIOTIC, UNSP TRIMESTER Qualifiers: Trimester: third trimester Qualified Code(s): O30.043 - Twin , dichorionic/diamniotic, third trimester (3) Threatened labor Code(s): O47.00 - FALSE LABOR BEFORE 37 COMPLETED WEEKS OF GEST, UNSP TRI (4) Gestational hypertension Code(s): O13.9 - GESTATIONAL HTN W/O SIGNIFICANT PROTEINURIA, UNSP TRIMESTER (5) Iron deficiency anemia due to dietary causes Code(s): D50.8 - OTHER IRON DEFICIENCY ANEMIAS (6) labor in third trimester Code(s): O60.03 - LABOR WITHOUT DELIVERY, THIRD TRIMESTER
[2017-07-28] MEDS: PRENATAL VITAMINS W/ FOLIC ACID TABLET (FP) PO SCH (09:21)
[2017-07-28] MEDS: PANTOPRAZOLE 40 MG TABLET (FP) PO SCH (09:26)
[2017-07-28 10:00] LABS: ANISOCYTOSIS 1+; MACROCYTOSIS 1+; PLATELET ESTIMATE NORMAL; TEAR DROP CELLS 1+
--- NOTE | 2017-07-28 10:21 | PN ---
Progress Note (short form) - Note Progress Note: Post op day#1.S/p C section under spinal anesthesia with duramorph uneventful.Patient stable and has little pain for which she is on medication.No any anesthesia related problem.Patient Dc from the anesthesia care.
[2017-07-28] MEDS: oxyCODONE HCL 5 MG TABLET PO PRN ×3 (10:53→23:50)
[2017-07-28] MEDS: SIMETHICONE 80 MG TAB.CHEW (FP) PO PRN ×3 (10:54→23:49)
[2017-07-28] MEDS: ACETAMINOPHEN 325 MG TABLET (FP) PO PRN ×2 (10:54→23:49)
[2017-07-28] MEDS: BISACODYL 10 MG SUPP.RECT RC PRN (16:30)
[2017-07-28] MEDS: FERROUS SO4 325 MG TABLET (FP) PO SCH (21:53)
[2017-07-29] MEDS: BISACODYL 10 MG SUPP.RECT RC PRN (01:02)
[2017-07-29] MEDS: SIMETHICONE 80 MG TAB.CHEW (FP) PO PRN ×4 (03:56→21:49)
[2017-07-29] MEDS: oxyCODONE HCL 5 MG TABLET PO PRN ×4 (03:57→21:49)
[2017-07-29] MEDS: ACETAMINOPHEN 325 MG TABLET (FP) PO PRN ×4 (03:58→21:49)
[2017-07-29 09:29] LABS: BASO % 0.3 % (0-2.0); EOS % 0.3 % (0-4.5); HEMATOCRIT 28.5 % (32.4-45.2); HEMOGLOBIN 9.2 GM/dL (10.7-15.3); LYMPH % 11.4 % (8-40); MCH 24.2 pg (25.7-33.7); MCHC 32.1 g/dl (32.0-36.0); MEAN CELL VOLUME 75.4 fl (80-96); MEAN PLT VOLUME 8.9 fl (7.5-11.1); MONO % 6.9 % (3.8-10.2); NEUT % 81.1 % (42.8-82.8); PLATELET COUNT 146 K/MM3 (134-434); RBC 3.78 M/mm3 (3.60-5.2); RDW 17.8 % (11.6-15.6); WHITE BLOOD COUNT 19.3 K/mm3 (4.0-10.0)
[2017-07-29] MEDS: PRENATAL VITAMINS W/ FOLIC ACID TABLET (FP) PO SCH (10:21)
[2017-07-29] MEDS: FERROUS SO4 325 MG TABLET (FP) PO SCH ×2 (10:21→21:49)
[2017-07-29] MEDS: PANTOPRAZOLE 40 MG TABLET (FP) PO SCH (10:24)
--- NOTE | 2017-07-29 11:03 | PN ---
Post Progress Note - Subjective Subjective: 26 yo Para 4 status post delivery, seen and evaluated. Doing well Post Day: 2 Type of Delivery: Primary C/S Vital Signs: Vital Signs Temperature 98.6 F 07/29/17 10:00 Pulse Rate 66 07/29/17 10:00 Respiratory Rate 20 07/28/17 21:07 Blood Pressure 141/89 07/29/17 10:00 O2 Sat by Pulse Oximetry (%) 99 07/27/17 12:45 Breast Exam: Yes: Soft Uterus: Yes: Fundus Firm Incision: Yes: Dressing dry and intact Abdomen/GI: Yes: Abdomen soft, Tolerating PO Lochia: Yes: Rubra Lochia, amount: Small Extremities: Yes: Calves non-tender Perineum: Yes: Intact Activity: Ambulating - Labs Labs: CBC WBC 19.3 K/mm3 (4.0-10.0) H 07/29/17 07:45 RBC 3.78 M/mm3 (3.60-5.2) D 07/29/17 07:45 Hgb 9.2 GM/dL (10.7-15.3) L D 07/29/17 07:45 Hct 28.5 % (32.4-45.2) L D 07/29/17 07:45 MCV 75.4 fl (80-96) L 07/29/17 07:45 MCH 24.2 pg (25.7-33.7) L 07/29/17 07:45 MCHC 32.1 g/dl (32.0-36.0) 07/29/17 07:45 RDW 17.8 % (11.6-15.6) H 07/29/17 07:45 Plt Count 146 K/MM3 (134-434) 07/29/17 07:45 MPV 8.9 fl (7.5-11.1) 07/29/17 07:45 Neutrophils % 81.1 % (42.8-82.8) 07/29/17 07:45 Neutrophils % (Manual) 84.2 % (42.8-82.8) H 07/28/17 07:15 Band Neutrophils % 0.0 % 07/28/17 07:15 Lymphocytes % 11.4 % (8-40) D 07/29/17 07:45 Lymphocytes % (Manual) 7.9 % (8-40) L 07/28/17 07:15 Monocytes % 6.9 % (3.8-10.2) 07/29/17 07:45 Monocytes % (Manual) 6 % (3.8-10.2) 07/28/17 07:15 Eosinophils % 0.3 % (0-4.5) 07/29/17 07:45 Eosinophils % (Manual) 0.0 % (0-4.5) 07/28/17 07:15 Basophils % 0.3 % (0-2.0) 07/29/17 07:45 Basophils % (Manual) 0.0 % (0-2.0) 07/28/17 07:15 Myelocytes % (Man) 0 % (0-2) 07/28/17 07:15 Promyelocytes % (Man) 0 % (0-2) 07/28/17 07:15 Blast Cells % (Manual) 0 % (0-0) 07/28/17 07:15 Nucleated RBC % 2 % (0-0) H 07/28/17 07:15 Metamyelocytes 1 % (0-2) 07/28/17 07:15 Hypochromia 1+ 07/28/17 07:15 Platelet Estimate Normal 07/28/17 07:15 Polychromasia 2+ 07/28/17 07:15 Poikilocytosis 0 07/28/17 07:15 Anisocytosis 1+ 07/28/17 07:15 Microcytosis 1+ 07/28/17 07:15 Macrocytosis 1+ 07/28/17 07:15 Tear Drop Cells 1+ 07/28/17 07:15 Problem List - Problems (1) Status post primary low transverse section Code(s): Z98.891 - HISTORY OF UTERINE SCAR FROM PREVIOUS SURGERY Assessment/Plan Status post Stable Ambulation Analgesia as needed Continue routine post op care
[2017-07-30] MEDS: ACETAMINOPHEN 325 MG TABLET (FP) PO PRN ×2 (06:26→20:32)
[2017-07-30] MEDS: oxyCODONE HCL 5 MG TABLET PO PRN ×2 (06:27→20:33)
--- NOTE | 2017-07-30 07:48 | PN ---
Post Progress Note - Subjective Subjective: c/o pain scale 5-6/10 bm done still c/o gaseous discomfort c/o swelling , heaviness in legs . no c/o dizziness s/p 2 units pack cell transfusion Post Day: 3 Type of Delivery: Primary C/S Vital Signs: Vital Signs Temperature 98.7 F 07/29/17 22:00 Pulse Rate 70 07/29/17 22:00 Respiratory Rate 20 07/29/17 22:00 Blood Pressure 145/80 07/29/17 22:00 O2 Sat by Pulse Oximetry (%) 99 07/27/17 12:45 Breast Exam: Yes: Soft, Other (pumping milk ). No: Engorged Uterus: Yes: Fundus Firm, Fundus below umbilicus, Non-tender Incision: Yes: [place] intact. No: Redness, Oozing Abdomen/GI: Yes: Abdomen soft, Abdominal Distention (mild bs active . gaseous distention ), Passing flatus (bm done ), Tolerating PO (diet ). No: Tender Lochia: Yes: Rubra Lochia, amount: Moderate Extremities: Yes: Calves non-tender, Edema Perineum: Yes: Intact Activity: Ambulating - Labs Labs: CBC WBC 19.3 K/mm3 (4.0-10.0) H 07/29/17 07:45 RBC 3.78 M/mm3 (3.60-5.2) D 07/29/17 07:45 Hgb 9.2 GM/dL (10.7-15.3) L D 07/29/17 07:45 Hct 28.5 % (32.4-45.2) L D 07/29/17 07:45 MCV 75.4 fl (80-96) L 07/29/17 07:45 MCH 24.2 pg (25.7-33.7) L 07/29/17 07:45 MCHC 32.1 g/dl (32.0-36.0) 07/29/17 07:45 RDW 17.8 % (11.6-15.6) H 07/29/17 07:45 Plt Count 146 K/MM3 (134-434) 07/29/17 07:45 MPV 8.9 fl (7.5-11.1) 07/29/17 07:45 Neutrophils % 81.1 % (42.8-82.8) 07/29/17 07:45 Neutrophils % (Manual) 84.2 % (42.8-82.8) H 07/28/17 07:15 Band Neutrophils % 0.0 % 07/28/17 07:15 Lymphocytes % 11.4 % (8-40) D 07/29/17 07:45 Lymphocytes % (Manual) 7.9 % (8-40) L 07/28/17 07:15 Monocytes % 6.9 % (3.8-10.2) 07/29/17 07:45 Monocytes % (Manual) 6 % (3.8-10.2) 07/28/17 07:15 Eosinophils % 0.3 % (0-4.5) 07/29/17 07:45 Eosinophils % (Manual) 0.0 % (0-4.5) 07/28/17 07:15 Basophils % 0.3 % (0-2.0) 07/29/17 07:45 Basophils % (Manual) 0.0 % (0-2.0) 07/28/17 07:15 Myelocytes % (Man) 0 % (0-2) 07/28/17 07:15 Promyelocytes % (Man) 0 % (0-2) 07/28/17 07:15 Blast Cells % (Manual) 0 % (0-0) 07/28/17 07:15 Nucleated RBC % 2 % (0-0) H 07/28/17 07:15 Metamyelocytes 1 % (0-2) 07/28/17 07:15 Hypochromia 1+ 07/28/17 07:15 Platelet Estimate Normal 07/28/17 07:15 Polychromasia 2+ 07/28/17 07:15 Poikilocytosis 0 07/28/17 07:15 Anisocytosis 1+ 07/28/17 07:15 Microcytosis 1+ 07/28/17 07:15 Macrocytosis 1+ 07/28/17 07:15 Tear Drop Cells 1+ 07/28/17 07:15 Other Findings, Remarks: pt keeping her urine out put , 700 ml last night Problem List - Problems (1) with 34 completed weeks gestation Code(s): Z3A.34 - 34 WEEKS GESTATION OF (2) Twin , twins dichorionic and diamniotic Code(s): O30.049 - TWIN , DICHORIONIC/DIAMNIOTIC, UNSP TRIMESTER Qualifiers: Trimester: third trimester Qualified Code(s): O30.043 - Twin , dichorionic/diamniotic, third trimester (3) Threatened labor Code(s): O47.00 - FALSE LABOR BEFORE 37 COMPLETED WEEKS OF GEST, UNSP TRI (4) Gestational hypertension Code(s): O13.9 - GESTATIONAL HTN W/O SIGNIFICANT PROTEINURIA, UNSP TRIMESTER (5) Iron deficiency anemia due to dietary causes Code(s): D50.8 - OTHER IRON DEFICIENCY ANEMIAS (6) labor in third trimester Code(s): O60.03 - LABOR WITHOUT DELIVERY, THIRD TRIMESTER (7) delivery delivered Code(s): O82 - ENCOUNTER FOR DELIVERY WITHOUT INDICATION Assessment/Plan Po primary c/s day #3 stable anemia s/p transfusion stable gaseous discomfort labile systolic BP elevation , no need of meds Plan encourage ambulation, leg ex, deep brathing ,
[2017-07-30 08:56] LABS: HEMOGLOBIN 8.8 GM/dL (10.7-15.3); MCH 24.1 pg (25.7-33.7); MCHC 31.5 g/dl (32.0-36.0); MEAN CELL VOLUME 76.5 fl (80-96); MEAN PLT VOLUME 8.9 fl (7.5-11.1); PLATELET COUNT 154 K/MM3 (134-434); RBC 3.67 M/mm3 (3.60-5.2); RDW 18.4 % (11.6-15.6); WHITE BLOOD COUNT 14.9 K/mm3 (4.0-10.0)
[2017-07-30] MEDS: PANTOPRAZOLE 40 MG TABLET (FP) PO SCH (09:36)
[2017-07-30] MEDS: FERROUS SO4 325 MG TABLET (FP) PO SCH ×2 (09:37→21:13)
[2017-07-30] MEDS: PRENATAL VITAMINS W/ FOLIC ACID TABLET (FP) PO SCH (09:37)
[2017-07-30 11:47] LABS: ANISOCYTOSIS 2+; MACROCYTOSIS 1+; OVALOCYTE 1+
[2017-07-30 12:10] LABS: PLATELET ESTIMATE ADEQUATE
[2017-07-30] MEDS: SIMETHICONE 80 MG TAB.CHEW (FP) PO PRN (20:33)
[2017-07-31] MEDS: SIMETHICONE 80 MG TAB.CHEW (FP) PO PRN (03:45)
[2017-07-31] MEDS: ACETAMINOPHEN 325 MG TABLET (FP) PO PRN (03:46)
[2017-07-31] MEDS: oxyCODONE HCL 5 MG TABLET PO PRN (03:46)
[2017-07-31] MEDS: FERROUS SO4 325 MG TABLET (FP) PO SCH (09:32)
[2017-07-31] MEDS: PRENATAL VITAMINS W/ FOLIC ACID TABLET (FP) PO SCH (09:33)
[2017-07-31] MEDS: PANTOPRAZOLE 40 MG TABLET (FP) PO SCH (09:33)
[2017-07-31 09:37] VITALS: BP 145/85; PULSE 73; TEMP 98
--- NOTE | 2017-07-31 14:31 | DS ---
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 Vital Signs: Vital Signs Temperature 98 F 07/31/17 09:36 Pulse Rate 73 07/31/17 09:36 Respiratory Rate 24 07/31/17 09:36 Blood Pressure 145/85 07/31/17 09:36 O2 Sat by Pulse Oximetry (%) 99 07/27/17 12:45 Constitutional: Yes: Well Nourished Eyes: Yes: Conjunctiva Clear HENT: Yes: Atraumatic Neck: Yes: Supple Cardiovascular: Yes: Regular Rate and Rhythm Respiratory: Yes: Regular Gastrointestinal: Yes: Normal Bowel Sounds ...Rectal Exam: Yes: WNL Renal/: Yes: WNL Pelvis: Yes: WNL External Genitalia: Yes: Normal Vaginal Exam: Yes: Normal Cervix: Yes: Normal Uterus: Yes: Firm Wound/Incision: Yes: Clean/Dry, Well Approximated Neurological: Yes: Alert, Oriented ...Motor Strength: WNL Psychiatric: Yes: Alert, Oriented Labs: CBC, BMP 07/30/17 08:00 07/27/17 01:10 Delivery - Delivery Section: Primary, Low Flap Transverse (Indication 34.5 weeks Twins vx/ br/ labor, Failed Tocolysis , gestational HTN) Type of Anesthesia: Spinal Episiotomy/Laceration: None EBL (cc): 1,200 Delivery, Single - Feeding Plan Initial Plan: Elected not to breastfeed exclusively throughout hospitalization Delivery, Multiple Births - Stages of Labor First Stage Date: 07/26/17 Time: 17:00 Delivery Baby "A" Date: 07/27/17 Time: 10:32 Placenta/Membranes "A" Date: 07/27/17 Time: 10:40 Delivery Baby "B" Date: 07/27/17 Time: 10:33 - Condition of Multiple Births 1 (A) Pourer Metal/Interlocking Tower Operator Present: Yes Pourer Metal: Rosa Zuñiga Infant Gender: Female Weight: 5 lb 15 oz Position: Left, OT Total Hours ROM (HRS/MINS): 0/08 2 (B) Pourer Metal/Interlocking Tower Operator Present: Yes Pourer Metal: Rosa Zuñiga Gender: Male Weight: 5 lb 6 oz Position: Left, SA Total Hours ROM (HRS/MINS): 0/07 - 1 (A) 1 Minute Score: 8 [place] 1 (A) 5 Minutes Score: 9 2 (B) 1 Minute Score: 8 [place] 2 (B) 5 Minutes Score: 9 Discharge Summary Reason For Visit: LABOR ADMIT Procedures: Principal: Primary Low Transverse Hospital Course: Routine post op care Condition: Stable - Instructions Diet, Activity, Other Instructions: Post Instructions DIET: Continue good diet high in protein, calcium, and iron rich foods. Drink at least eight (8) glasses of water daily in addition to other fluids. ___ Regular diet MEDICATIONS: Continue vitamins and iron as previously directed. Motrin and Tylenol may be taken for minor discomfort. ACTIVITY: Mild to moderate exercise may be started in two (2) weeks. Take frequent rest periods. Resume normal activity after six (6) week check up. WOUND CARE OF OPERATIVE SITE: Continue use of perineal bottle until vaginal discharge stops. Keep area clean. Shower daily. Keep abdominal wound dry. Report any drainage or redness to physician. Tub baths, tampons and douches are not permitted for [address] Breast feeding , pumping breast milk & or Bottle feeding BREAST CARE: (For those that are not ): If engorgement occurs: Wear tight fitting bra. Take Tylenol or Motrin for pain. Apply cold packs (ice in bags to each breast ) FAMILY PLANNING: There are many control alternatives to pursue and they should be discussed at your first office visit. You may resume sexual activity after your six (6) week check up. (Remember, is not a contraceptive) NEXT PHYSICIAN APPOINTMENT: Be certain to call for a one (1) week appointment, unless otherwise directed. Call Clinic or got to Emergency Dept if you have any of the following: Heavy vaginal bleeding Painful urination Leg pain Unusual odor noted to vaginal bleeding High fever Red streaking noted on breast Referrals: Kym Monteiro MD [Staff Physician] - Disposition: HOME - Home Medications Comprehensive Discharge Medication List: Ambulatory Orders Vit Calc,Iron,Folic [ Vitamins] 1 tab PO DAILY 07/27/17 Acetaminophen [Tylenol .Regular Strength -] 500 mg PO Q4H PRN #30 tablet Ferrous Sulfate [Feosol] 325 mg PO BID #60 tab 07/30/17 Ibuprofen [Motrin -] 600 mg PO Q4H PRN #30 tablet 07/30/17 Pantoprazole Sodium [Protonix -] 40 mg PO DAILY #30 tablet.ec 07/30/17 Vitamins (Sjr) - 1 tab PO DAILY #30 tablet 07/30/17
--- NOTE | 2017-08-04 08:52 | PATH ---
Surgical Pathology Report Patient Name: SRI IBARRA [facility]. Rec. #: [id number] /Age/Gender: 1990 (Age: 26) / F Account: [id number] Location: [facility] OBS/[facility] Taken: 07/28/2017 Received: 07/28/2017 Reported: 08/04/2017 Physicians: Kym Monteiro M.D. Specimen(s) Received PLACENTA,TWIN BABY GIRL A BABY BOY B Clinical History None Provided Final Diagnosis PLACENTA, DELIVERY: DIAMNIOTIC DICHORIONIC TWIN PLACENTA WITH SEPARATE PLACENTAL DISCS PLACENTA A SHOWS FOCALLY DISRUPTED THIRD TRIMESTER PLACENTA WITH 3 VESSEL UMBILICAL CORD AND UNREMARKABLE PLACENTAL MEMBRANES PLACENTA B SHOWS FOCALLY DISRUPTED THIRD TRIMESTER PLACENTA WITH SMALL INFARCT, 3 VESSEL UMBILICAL CORD, AND UNREMARKABLE PLACENTAL MEMBRANES. Electronically Signed Karthik Roman M.D. Gross Description Received fresh labeled "placenta" is a twin placenta with separate placental discs. One umbilical cord has a single clamp and this is indicated to be placenta A. The other umbilical cord has a double clamp and this is indicated to be placenta B. The dividing membranes are thick and translucent, and insert 3 cm from the margin of placenta A. The placental membranes of placenta A insert marginally and are glistening and translucent. The attached portion of umbilical cord inserts centrally, 7 cm from the nearest placental margin, is 22 cm long by up to 1.2 cm in diameter, and grossly contains 3 blood vessels. Stripped of its membranes and portion of umbilical cord the placental disc weighs 447 grams. The disc is ovoid and measures 19 x 15 x up to 3 cm. The surface is blue smooth and glistening with a branching pattern of blood vessels. The maternal surface is lobulated and focally disrupted. There is no adherent blood clot or areas of thinning. Cut surface reveals spongy red tissue with no areas of consolidation. Adolescent Medicine Specialist sections are submitted in one cassette. Placental membranes for placenta B insert marginally and are glistening and translucent. The attached portion of umbilical cord inserts E. Centrically, 5 cm from the nearest placental margin, is 25 cm long by average of 1.5 cm in diameter, and grossly contains 3 blood vessels. Stripped of its membranes and portion of umbilical cord the placental disc weighs 518 grams. The disc is ovoid and measures 18 x 14 x 3 cm. The surface is blue smooth and glistening with a branching pattern of blood vessels. The maternal surface is lobulated and focally disrupted. There is no adherent blood clot or area of thinning. Cut surface reveals a 0.5 cm in greatest dimension area of consolidation. Adolescent Medicine Specialist sections are submitted as follows: 1-dividing membranes; 2 and 3-placenta A.; 4 through 6-placenta B. [facility]/07/31/2017 [facility]/07/31/2017
== END 2017-07-31 12:32 | disposition home or self-care (01) | DRG 540 ==
LOC: JDEL 23:55 → JLDR 07-27 06:40 → J3W 07-27 13:10
PROVIDERS: ADMIT Obstetrics & Gynecology; ATTEND Obstetrics & Gynecology
PROC: 10D00Z1 Extraction of Products of Conception, Low, Open Approach (ICD-10-PCS; principal; 2017-07-27)
PROC: 30233N1 Transfusion of Nonautologous Red Blood Cells into Peripheral Vein, Percutaneous Approach (ICD-10-PCS; 2017-07-28)
DX: O30.003 Twin pregnancy, unspecified number of placenta and unspecified number of amniotic sacs, third trimester (principal); O13.4 Gestational [pregnancy-induced] hypertension without significant proteinuria, complicating childbirth; O99.02 Anemia complicating childbirth; O32.1XX0 Maternal care for breech presentation, not applicable or unspecified; Z3A.34 34 weeks gestation of pregnancy; O60.14X0 Preterm labor third trimester with preterm delivery third trimester, not applicable or unspecified; D50.9 Iron deficiency anemia, unspecified; O72.1 Other immediate postpartum hemorrhage; Z37.2 Twins, both liveborn
CPT/HCPCS: 36415; 36430; 36600; 59025; 76810-TC; 76830-TC; 80053; 81003; 82731; 82803; 83735; 84550; 85025; 85610; 85730; 86593; 86850; 86900; 86901; 86922; 88307-TC; 94010; 96372; J0131; P9038; P9058

== ENCOUNTER 2018-06-04 19:57 | Emergency (ER) | payer OTHER ==
[2018-06-04 20:05] VITALS: BMI 26.2
--- NOTE | 2018-06-04 20:14 | PDOC ---
History of Present Illness - General Chief Complaint: Pain Stated Complaint: LT flank pain Time Seen by Provider: 06/04/18 20:10 History Source: Patient Exam Limitations: No Limitations - History of Present Illness Initial Comments: 06/04/18 20:28 27 year old female with PMH PE (10/31/17), anemia presented to ED for left sided chest wall pain since Friday. Pt stated her pain is constant, non- radiating, aggravated by coughing, no alleviating factors. Pt admitted to cough x1 month productive (green/blood streaked), lower extremity bruising (since ), and shortness of breath secondary to pain. Pt denied anterior chest pain, nausea, vomiting, diarrhea, abdominal pain, back pain, constipation, dysuria. Pt stated she took Eliquis from the time she was diagnosed with the PE until January when she was told to stop taking it. Allergies: NKDA Past History - Past Medical History Allergies/Adverse Reactions: Allergies Allergy/AdvReac Type Severity Reaction Status Date / Time No Known Allergies Allergy Verified 10/31/17 16:15 Anemia: Yes Asthma: No Cancer: No Cardiac Disorders: No COPD: No Diabetes: No HTN: No Seizures: No Thyroid Disease: No Other medical history: PE - Surgical History Appendectomy: Yes - Reproductive History (#): 5 Para: 3 Therapeutic (s) & number: Yes Spontaneous : 2 - Immunization History Immunization Up to Date: Yes - Suicide/Smoking/Psychosocial Hx Smoking History: Never smoked Have you smoked in the past 12 months: No Information on smoking cessation initiated: No Hx Alcohol Use: No Drug/Substance Use Hx: No Substance Use Type: None Hx Substance Use Treatment: No Review of Systems - Review of Systems Able to Perform ROS?: Yes Comments:: 06/04/18 20:30 General: denied fever, chills, night sweats, generalized weakness. HEENT: denied sore throat, rhinorrhea, ear pain. Heart: admitted to chest pain. denied palpitations, syncope, lower extremity swelling, diaphoresis. Respiratory: admitted to shortness of breath, cough. denied sputum production, hemoptysis. Abdomen: denied abdominal pain, nausea, vomiting, diarrhea, constipation, blood in stool. : denied dysuria, increased urinary frequency, hematuria, urinary incontinence , flank pain. Back: denied back pain. Musculoskeletal: denied joint pain, muscle pain, joint swelling. Neurological: denied headache, dizziness, numbness, tingling, weakness. Skin: denied rash, laceration, abrasion. Heme: admitted to bruising. *Physical Exam - Vital Signs Last Vital Signs Temp Pulse Resp BP Pulse Ox 97.6 F 130 H 18 141/88 100 06/04/18 20:01 06/04/18 20:01 06/04/18 20:01 06/04/18 20:01 06/04/18 20:01 - Physical Exam Comments: 06/04/18 20:31 Constitutional: Well-nourished, Well-developed, appearing stated age. appears in pain with coughing. HEENT: head is normocephalic, atraumatic. EOMI. PERRLA. Neck: supple. Full ROM. Heart: regular rhythm. no murmurs, rubs or gallops. Chest: no anterior chest wall tenderness. no rib tenderness bilaterally. Lungs: clear to auscultation bilaterally. no crackles, rhonchi or wheezing. no stridor. Abdomen: soft, nontender. normal bowel sounds. no rebound, guarding, masses. Extremities: diffuse ecchymoses to bilateral lower extremities. Peripheral pulses intact. No lower extremity edema. no calf tenderness bilaterally. Neurological: CN 2-12 grossly intact. Moves all four extremities. Psych: awake, alert, oriented x3. Follows commands. Answers questions appropriately. Moderate Sedation - Procedure Monitoring Vital Signs: Procedure Monitoring Vital Signs Temperature 97.6 F 06/04/18 20:01 Pulse Rate 130 H 06/04/18 20:01 Respiratory Rate 18 06/04/18 20:01 Blood Pressure 141/88 06/04/18 20:01 O2 Sat by Pulse Oximetry (%) 100 06/04/18 20:01 Procedures - Bedside Ultrasound Remarks: 06/04/18 21:08 Bedside ultrasound was performed, but not validated by an attending. Findings are not official. Cardiac: PSLA, PSSA, Apical, and Subxiphoid views were obtained. No pericardial effusion. No RV dilation. No septal bowing. Good squeeze. Tachycardic. Lung: positive lung sliding bilaterally, suggesting against pneumothorax. negative spine sign bilaterally, suggesting against pleural effusion. IVC: no plethoric IVC. ED Treatment Course - LABORATORY CBC & Chemistry Diagram: 06/04/18 20:13 06/04/18 20:13 Medical Decision Making - Medical Decision Making 06/04/18 21:10 27 year old female with above PMH presented to ED for left sided chest wall pain since Friday associated with cough x1 month productive (yellow/blood tinged ). Initial Vital Signs Temp Pulse Resp BP Pulse Ox 97.6 F 130 H 18 141/88 100 06/04/18 20:01 06/04/18 20:01 06/04/18 20:01 06/04/18 20:01 06/04/18 20:01 Afebrile. Tachycardic. No tachypnea. Mild hypertension. No hypoxia on room air. EKG performed at 2309: rate 77, regular rhythm, normal axis, normal intervals, no acute ST changes. Labs ordered: CBC, CMP, UA, serum , D-dimer Imaging ordered: none, awaiting testing Medications ordered: none, awaiting testing 06/04/18 21:17 D-dimer elevated. Imaging ordered: CTA chest CBC WBC 9.5 K/mm3 (4.0-10.0) 06/04/18 20:13 RBC 4.40 M/mm3 (3.60-5.2) 06/04/18 20:13 Hgb 13.1 GM/dL (10.7-15.3) 06/04/18 20:13 Hct 39.1 % (32.4-45.2) 06/04/18 20:13 MCV 88.8 fl (80-96) 06/04/18 20:13 MCH 29.7 pg (25.7-33.7) 06/04/18 20:13 MCHC 33.4 g/dl (32.0-36.0) 06/04/18 20:13 RDW 15.6 % (11.6-15.6) 06/04/18 20:13 Plt Count 388 K/MM3 (134-434) D 06/04/18 20:13 MPV 8.5 fl (7.5-11.1) 06/04/18 20:13 Absolute Neuts (auto) 7.1 K/mm3 (1.5-8.0) 06/04/18 20:13 Neutrophils % 74.2 % (42.8-82.8) 06/04/18 20:13 Lymphocytes % 20.6 % (8-40) 06/04/18 20:13 Monocytes % 4.0 % (3.8-10.2) 06/04/18 20:13 Eosinophils % 0.2 % (0-4.5) 06/04/18 20:13 Basophils % 1.0 % (0-2.0) 06/04/18 20:13 Nucleated RBC % 0 % (0-0) 06/04/18 20:13 No leukocytosis. No anemia. No thrombocytopenia. 06/04/18 22:01 CMP Sodium 140 mmol/L (136-145) 06/04/18 20:13 Potassium 3.9 mmol/L (3.5-5.1) 06/04/18 20:13 Chloride 108 mmol/L (98-107) H 06/04/18 20:13 Carbon Dioxide 26 mmol/L (21-32) 06/04/18 20:13 Anion Gap 6 MMOL/L (8-16) L 06/04/18 20:13 BUN 6 mg/dL (7-18) L 06/04/18 20:13 Creatinine 0.6 mg/dL (0.55-1.3) 06/04/18 20:13 Creat Clearance w eGFR > 60 (>60) 06/04/18 20:13 Random Glucose 69 mg/dL (74-106) L 06/04/18 20:13 Calcium 10.4 mg/dL (8.5-10.1) H 06/04/18 20:13 Total Bilirubin 0.4 mg/dL (0.2-1) 06/04/18 20:13 AST 16 U/L (15-37) 06/04/18 20:13 ALT 17 U/L (13-61) 06/04/18 20:13 Alkaline Phosphatase 107 U/L (45-117) 06/04/18 20:13 Creatine Kinase 101 U/L (26-192) 06/04/18 20:13 Troponin I < 0.02 ng/ml (0.00-0.05) 06/04/18 20:13 Total Protein 8.2 g/dl (6.4-8.2) 06/04/18 20:13 Albumin 4.1 g/dl (3.4-5.0) 06/04/18 20:13 Serum , Qual Negative 06/04/18 20:41 No electrolyte abnormality. No AUGUSTO. No transaminitis. Normal troponin. Serum testing negative. Urine Test Results Urine Color Yellow 06/04/18 20:25 Urine Appearance Clear 06/04/18 20:25 Urine pH 6.0 (5.0-8.0) 06/04/18 20:25 Ur Specific [place] 1.019 (1.010-1.035) 06/04/18 20:25 Urine Protein Negative (NEGATIVE) 06/04/18 20:25 Urine Glucose (UA) Negative (NEGATIVE) 06/04/18 20:25 Urine Ketones Negative (NEGATIVE) 06/04/18 20:25 Urine Blood Negative (NEGATIVE) 06/04/18 20: Urine Nitrite Negative (NEGATIVE) 06/04/18 20:25 Urine Bilirubin Negative (<2.0 mg/dL) 06/04/18 20:25 Ur Leukocyte Esterase Negative (NEGATIVE) 06/04/18 20:25 Negative for UTI. No blood in urine, suggesting against nephrolithiasis as source of pain. Medications ordered: toradol 06/04/18 22:54 Pt reassessed, reported improvement in pain with Toradol. Will continue to observe. Pending CTA report. 06/04/18 23:21 CTA negative for PE. Pt reassessed, reported improving pain. 06/04/18 23:38 Coags normal. Results discussed with patient. Copies of lab work and CTA report given to pt. Pt informed to follow up with PCP and bring all paperwork given to her today. Pt agreed with plan for care. Pt discharged. *DC/Admit/Observation/Transfer Diagnosis at time of Disposition: Left-sided chest wall pain - Referrals Referrals: Kiana Domingo MD [Primary Care Provider] - - Patient Instructions Printed Discharge Instructions: DI for Cough -- Adult Additional Instructions: You were seen today for left sided chest pain. Your Cat Scan of your chest was normal, there is no blood clot. Likely your pain is due to your ongoing cough. Take ibuprofen over the counter for your pain. Take 800 mg every 8 hours as needed for up to 3 days, and take each dose with food to avoid irritating your stomach. Follow up with your primary care doctor in 1-2 days. Your care is not complete until you follow up. Return to the Emergency Department for increasing pain, shortness of breath, lightheadedness like you may pass out, passing out, or any other new, worsening or concerning symptoms. - Post Discharge Activity Forms/Work/School Notes: Back to Work
--- NOTE | 2018-06-04 20:14 | PDOC ---
Rapid Medical Evaluation Chief Complaint: Pain Time Seen by Provider: 06/04/18 20:10 Medical Evaluation: Allergies Allergy/AdvReac Type Severity Reaction Status Date / Time No Known Allergies Allergy Verified 10/31/17 16:15 Vital Signs Temp Pulse Resp BP Pulse Ox 97.6 F 130 H 18 141/88 100 06/04/18 20:01 06/04/18 20:01 06/04/18 20:01 06/04/18 20:01 06/04/18 20:01 06/04/18 20:10 I have performed a brief in-person evaluation of this patient. The patient presents with a chief complaint of: h/o PE 8 months ago and anti- coagulation which was d/c 3 months ago present with complains of left side lower ribs pain which has been worsening and increased with deep breathing or cough. Denies SOB, palpitations, N/V, dizziness, numbness or tingling sensation. Denies injury or trauma to chest Pertinent physical exam findings: A&O x 3 in no acute distress. tachycardic to 130s. moderate reproduceable tenderness over left lower ribs over 10-12th ribs on lateral side I have ordered the following: CBC, CMP, cardiac profile, d-dimer, CXR The patient will proceed to the ED for further evaluation. 06/04/18 20:13 Discharge Disposition - Diagnosis Left-sided chest wall pain - Referrals - Patient Instructions - Post Discharge Activity
[2018-06-04 20:27] LABS: EOS % 0.2 % (0-4.5); HEMATOCRIT 39.1 % (32.4-45.2); HEMOGLOBIN 13.1 GM/dL (10.7-15.3); LYMPH % 20.6 % (8-40); MCH 29.7 pg (25.7-33.7); MCHC 33.4 g/dl (32.0-36.0); MEAN CELL VOLUME 88.8 fl (80-96); MEAN PLT VOLUME 8.5 fl (7.5-11.1); NEUT % 74.2 % (42.8-82.8); PLATELET COUNT 388 K/MM3 (134-434); RDW 15.6 % (11.6-15.6); WHITE BLOOD COUNT 9.5 K/mm3 (4.0-10.0)
[2018-06-04 21:16] LABS: URINE APPEARANCE CLEAR; URINE BILIRUBIN NEGATIVE (<2.0 mg/dL); URINE COLOR YELLOW; URINE GLUCOSE (UA) NEGATIVE (NEGATIVE); URINE KETONE NEGATIVE (NEGATIVE); URINE LEUK ESTERASE NEGATIVE (NEGATIVE); URINE NITRITE NEGATIVE (NEGATIVE); URINE PROTEIN NEGATIVE (NEGATIVE); URINE UROBILINOGEN NEGATIVE mg/dL (0.2-1.0)
--- NOTE | 2018-06-04 21:23 | PDOC ---
Attending Attestation - HPI HPI: The patient is a 27 year old female, with a significant PMH of PE (10/31/17) and anemia, who presents to the emergency department today complaining of left lower chest/flank pain, palpitations, and SOB for 5 days. Patient complains of a constant sharp-shooting pain localized to the left lower chest/flank, which is exacerbated with coughing and when reaching her arms above her head. Patient reports associated dyspnea and palpitations secondary to her chest pain. She does also note LE ecchymosis without trauma to the legs. Patient reports being taken off Eliquis in January, when her PE resolved. The patient denies headache and dizziness. Denies fever, chills, nausea, vomit, diarrhea, constipation, and abdominal pain. Denies dysuria, frequency, urgency and hematuria. Allergies: NKA Past surgical history: Appendectomy Social history: No reported PCP: Dr. Kiana Domingo 06/04/18 21:24 - Physicial Exam PE: GENERAL: The patient is in no acute distress. HEAD: Normal with no signs of trauma. EYES: PERRLA, EOMI, sclera anicteric, conjunctiva clear. ENT: Ears normal, nares patent, oropharynx clear without exudates. Moist mucous membranes. NECK: Normal range of motion, supple without lymphadenopathy, JVD, or masses. LUNGS: Breath sounds equal, clear to auscultation bilaterally. No wheezes, and no crackles. Denies difficulty breathing. HEART:Regular rate and rhythm, normal S1 and S2 without murmur, rub or gallop. ABDOMEN: Soft, nontender, normoactive bowel sounds. No guarding, no rebound. No masses palpable. EXTREMITIES: Normal range of motion, no edema. No clubbing or cyanosis. No erythema, or tenderness. NEUROLOGICAL: Cranial nerves II through XII grossly intact. Normal speech. No focal neurological deficits. MUSCULOSKELETAL: Back non-tender to palpation, no CVA tenderness SKIN: Warm, Dry, normal turgor, no rashes or lesions noted. 06/04/18 21:24 - Medical Decision Making Documentation prepared by JOSELIN Spangler, acting as center medical director for Leana Bess MD. 06/04/18 21:24 <Rita Valentin - Last Filed: 06/04/18 21:24> - Resident Resident Name: RogerioSeema - ED Attending Attestation I have performed the following: I have examined & evaluated the patient, The case was reviewed & discussed with the resident, I agree w/resident's findings & plan, Exceptions are as noted - Medical Decision Making Pt has a h/o PE s/p anticoagulation with follow up confirmation of resolution of PE PT presents today with a complaint of persistent left sided chest pain which is constant, worse with movement of left arm, deep breath Pt has had a cough No fevers currently DD: PE, musculoskeletal pain due to cough, pleural effusion, pneumonia 06/04/18 22:09 Will do labs CTA chest Laboratory Tests 06/04/18 06/04/18 06/04/18 20:13 20:13 20:13 WBC 9.5 Hgb 13.1 Hct 39.1 Plt Count 388 D D-Dimer 581 H BUN 6 L Creatinine 0.6 Creatine Kinase 101 Troponin I < 0.02 Serum , Qual Urine Blood Urine Nitrite Ur Leukocyte Esterase 06/04/18 06/04/18 06/04/18 20:13 20:25 20:41 WBC Hgb Hct Plt Count D-Dimer BUN Creatinine Creatine Kinase 86 Troponin I < 0.02 Serum , Qual Negative Urine Blood Negative Urine Nitrite Negative Ur Leukocyte Esterase Negative 06/04/18 23:09 Twelve-lead EKG was performed and reviewed by me. There is normal sinus rhythm with a normal rate. The axis is normal. The intervals are normal. There are no ST or T wave abnormalities. Impression: Normal twelve-lead EKG 06/04/18 23:52 CTA negative for PE Will discharge to home Follow up with PMD Rudy for pain <Leana Bess - Last Filed: 06/04/18 23:53>
[2018-06-04 21:54] LABS: ALBUMIN 4.1 g/dl (3.4-5.0); ALK PHOS 107 U/L (45-117); ANION GAP 6 MMOL/L (8-16); BILIRUBIN,TOTAL 0.4 mg/dL (0.2-1); BLOOD UREA NITROGEN 6 mg/dL (7-18); CALCIUM 10.4 mg/dL (8.5-10.1); CHLORIDE 108 mmol/L (98-107); CO2 26 mmol/L (21-32); CREATININE 0.6 mg/dL (0.55-1.3); GLUCOSE,RANDOM 69 mg/dL (74-106); POTASSIUM 3.9 mmol/L (3.5-5.1); SGOT/AST 16 U/L (15-37); SGPT/ALT 17 U/L (13-61); SODIUM 140 mmol/L (136-145); TOT PROT 8.2 g/dl (6.4-8.2)
[2018-06-04] MEDS ORDERED: KETOROLAC TROMETHAMINE 30 MG/1 ML VIAL IVPUSH ONE (22:02)
[2018-06-04] MEDS ORDERED: KETOROLAC TROMETHAMINE 30 MG/1 ML VIAL ONE (22:05)
[2018-06-04 23:34] LABS: INR 1.07 (0.83-1.09); PROTHROMBIN TIME (PATIENT) 12.6 SEC (9.7-13.0)
[2018-06-04 23:37] LABS: ACTIVATED PTT 28.5 SECONDS (25.2-36.5)
[2018-06-05] VITALS: BP 126/71; PULSE 74; TEMP 99
--- NOTE | 2018-06-05 12:52 | EKG ---
Test Reason : Blood Pressure : / mmHG Vent. Rate : 077 BPM Atrial Rate : 077 BPM P-R Int : 150 ms QRS Dur : 088 ms QT Int : 344 ms P-R-T Axes : 052 047 024 degrees QTc Int : 389 ms NORMAL SINUS RHYTHM NORMAL ECG WHEN COMPARED WITH ECG OF 31-OCT-2017 16:22, NO SIGNIFICANT CHANGE WAS FOUND Confirmed by ANNA TAYLOR MD ([id number]) on 06/05/2018 12:52:16 PM Referred By: Confirmed By:ANNA TAYLOR MD
== END 2018-06-05 | disposition home or self-care (01) ==
LOC: JER 19:57
PROC: 3E0333Z Introduction of Anti-inflammatory into Peripheral Vein, Percutaneous Approach (ICD-10-PCS; principal; 2018-06-04)
DX: R07.89 Other chest pain (principal); Z86.711 Personal history of pulmonary embolism; Z79.01 Long term (current) use of anticoagulants
CPT/HCPCS: 36415; 71275-TC; 80053; 81003; 82550; 84484; 84703; 85025; 85379; 85610; 85730; 86850; 86900; 86901; 93005; 93010; 99283-25

== ENCOUNTER 2018-09-06 12:56 | Emergency (ER) | payer OTHER ==
[2018-09-06 13:05] VITALS: BP 126/58; PULSE 80; TEMP 97.4; BMI 31.1
[2018-09-06] MEDS ORDERED: IBUPROFEN 400 MG TABLET (FP) PO ONE ×2 (13:36→13:37)
--- NOTE | 2018-09-06 13:48 | PDOC ---
History of Present Illness - General Chief Complaint: Pain Stated Complaint: RT BREAST PAIN Time Seen by Provider: 09/06/18 13:14 History Source: Patient Exam Limitations: No Limitations Past History - Travel Traveled outside of the country in the last 30 days: No Close contact w/someone who was outside of country & ill: No - Past Medical History Allergies/Adverse Reactions: Allergies Allergy/AdvReac Type Severity Reaction Status Date / Time No Known Allergies Allergy Verified 09/06/18 13:02 Home Medications: Ambulatory Orders NK [No Known Home Medication] 09/06/18 Anemia: Yes Asthma: No Cancer: No Cardiac Disorders: No COPD: No Diabetes: No HTN: No Seizures: No Thyroid Disease: No - Surgical History Appendectomy: Yes - Reproductive History (#): 5 Para: 3 Therapeutic (s) & number: Yes Spontaneous : 2 - Immunization History Immunization Up to Date: Yes - Suicide/Smoking/Psychosocial Hx Smoking History: Never smoked Have you smoked in the past 12 months: No Information on smoking cessation initiated: No Hx Alcohol Use: No Drug/Substance Use Hx: No Substance Use Type: None Hx Substance Use Treatment: No Review of Systems - Review of Systems Able to Perform ROS?: Yes Comments:: 09/06/18 13:40 CONSTITUTIONAL: Absent: fever, chills, diaphoresis, generalized weakness, malaise, loss of appetite CARDIOVASCULAR: Absent: chest pain, loss of consciousness, palpitations, irregular heart rate, peripheral edema GENITOURINARY: Present: R breast pain Absent: dysuria, frequency, urgency, hesitancy, hematuria , flank pain, genital pain MUSCULOSKELETAL: Absent: myalgia, arthralgia, joint swelling SKIN: Absent: rash, itching, pallor HEMATOLOGIC/IMMUNOLOGIC: Absent: easy bleeding, easy bruising, lymphadenopathy, frequent infections ENDOCRINE: Absent: unexplained weight gain, unexplained weight loss, heat intolerance, cold intolerance NEUROLOGIC: Absent: headache, focal weakness or paresthesias, dizziness, unsteady gait, seizure, mental status changes, bladder or bowel incontinence PSYCHIATRIC: Absent: anxiety, depression, suicidal or homicidal ideation, hallucinations. Is the patient limited Bulgarian proficient: No *Physical Exam - Vital Signs Last Vital Signs Temp Pulse Resp BP Pulse Ox 97.4 F L 80 18 126/58 L 100 09/06/18 13:03 09/06/18 13:03 09/06/18 13:03 09/06/18 13:03 09/06/18 13:03 - Physical Exam Comments: 09/06/18 13:48 GENERAL: The patient is awake, alert, and fully oriented, in no acute distress. HEAD: Normal with no signs of trauma. EYES: Pupils equal, round and reactive to light, extraocular movements intact, sclera anicteric, conjunctiva clear. BREAST: R breast with TTP at the 7 o'clock position; no palpable mass. No lymph nodes present. EXTREMITIES: Normal range of motion, no edema. NEUROLOGICAL: Normal speech, normal gait. PSYCH: Normal mood, normal affect. SKIN: Warm, Dry, normal turgor, no rashes or lesions noted. ED Treatment Course - Medications Given in the ED: ED Medications Discontinued Medications Generic Name Dose Route Start Last Admin Trade Name Albertq PRN Reason Stop Dose Admin Ibuprofen 800 mg 09/06/18 13:36 09/06/18 13:38 Motrin - PO 09/06/18 13:37 800 mg ONCE ONE Administration *DC/Admit/Observation/Transfer Diagnosis at time of Disposition: Breast pain - Discharge Dispostion Disposition: HOME Condition at time of disposition: Stable Decision to Admit order: No - Referrals - Patient Instructions Printed Discharge Instructions: DI for Breast Pain (Mastalgia) Additional Instructions: You were evaluated for your breast pain today. Please wear good fitting bra. Please take Motrin 600 mg every 6 hours for pain. 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 Return to the ER for worsening pain, chest pain, shortness of breath, or if you have any changes in your symptoms. - Post Discharge Activity Forms/Work/School Notes: Back to Work
== END 2018-09-06 13:56 | disposition home or self-care (01) ==
LOC: JERFT 12:56
DX: N64.4 Mastodynia (principal)
CPT/HCPCS: 99281-25

== ENCOUNTER 2019-06-15 17:24 | Emergency (ER) | payer OTHER ==
[2019-06-15 17:34] VITALS: TEMP 98.1; BMI 31.1
[2019-06-15] MEDS ORDERED: ACETAMINOPHEN 500 MG TABLET (FP) PO ONE (17:34)
--- NOTE | 2019-06-15 17:34 | PDOC ---
Rapid Medical Evaluation Chief Complaint: Carbon Monoxide Exposure Time Seen by Provider: 06/15/19 17:31 Medical Evaluation: Allergies Allergy/AdvReac Type Severity Reaction Status Date / Time No Known Allergies Allergy Verified 09/06/18 13:02 06/15/19 17:33 Pt c/o: at work and smelled gas, fire dept came, unknown source, now headache and dizziness Pt on brief exam: headache, good color, ao x 3, perrl pt ordered for: carboxy, tylenol pt to proceed to the ED Discharge Disposition - Diagnosis Headache - Referrals - Patient Instructions - Post Discharge Activity
[2019-06-15] MEDS ORDERED: ALBUTEROL SO4 2.5/IPRATROPIUM 0.5 INH SOL 3 ML VIAL.NEB. NEB ONE ×2 (18:30→18:36)
[2019-06-15] MEDS ORDERED: ACETAMINOPHEN 325 MG TABLET (FP) ONE (18:33)
--- NOTE | 2019-06-15 18:44 | PDOC ---
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 Patient reports started feeling dizziness and the fire department was called which responded and was dropped to the EMS to the ER by EMS for evaluation by carbon monoxide exposure. Denies nausea, vomiting, blurry vision or change in vision. Is this a multiple visit Asthma Patient?: No Timing/Duration: 1-3 hours <Anshul Alford - Last Filed: 06/15/19 19:10> <Magda Saldaña - Last Filed: 06/17/19 10:24> - General Chief Complaint: Carbon Monoxide Exposure Stated Complaint: GAS EXPOSURE Time Seen by Provider: 06/15/19 17:31 Past History - Past Medical History Anemia: Yes Asthma: No Cancer: No Cardiac Disorders: No COPD: No Diabetes: No HTN: No Seizures: No Thyroid Disease: No - Surgical History Appendectomy: Yes - Reproductive History (#): 5 Para: 3 Therapeutic (s) & number: Yes Spontaneous : 2 - Immunization History Immunization Up to Date: Yes - Psycho Social/Smoking Cessation Hx Smoking History: Never smoked Have you smoked in the past 12 months: No Information on smoking cessation initiated: No Hx Alcohol Use: No Drug/Substance Use Hx: No Substance Use Type: None Hx Substance Use Treatment: No <Anshul Alford - Last Filed: 06/15/19 19:10> <Magda Saldaña - Last Filed: 06/17/19 10:24> - Past Medical History Allergies/Adverse Reactions: Allergies Allergy/AdvReac Type Severity Reaction Status Date / Time No Known Allergies Allergy Verified 06/15/19 17:34 Home Medications: Ambulatory Orders NK [No Known Home Medication] 09/06/18 Review of Systems - Review of Systems Able to Perform ROS?: Yes Is the patient limited Indonesian proficient: No Constitutional: No: Fever, Malaise, Weakness HEENTM: No: Symptoms Reported, See HPI, Eye Pain, Blurred Vision, Tearing, Recent change in vision, Double Vision, Cataracts, Ear Pain, Ocular Prothesis, Ear Discharge, Nose Pain, Nose Congestion, Tinnitus, Nose Bleeding, Hearing Loss , Throat Pain, Throat Swelling, Mouth Pain, Dental Problems, Difficulty Swallowing, Mouth Swelling, Other Respiratory: Yes: Symptoms reported, See HPI, Cough, Shortness of Breath ( intermittent). No: Orthopnea, SOB with Exertion, SOB at Rest, Stridor, Wheezing , Productive cough, Hemoptysis, Other Cardiac (ROS): Yes: Symptoms Reported, See HPI, Lightheadedness. No: Irregular Heart Rate, Palpitations, Syncope, Chest Tightness ABD/GI: No: Symptoms Reported, Nausea, Vomiting, Abdominal cramping Integumentary: No: Symptoms Reported Neurological: Yes: Symptoms reported, See HPI, Headache, Dizziness. No: Numbness, Pre-Existing Deficit, Weakness, Unsteady Gait All Other Systems: Reviewed and Negative <Anshul Alford - Last Filed: 06/15/19 19:10> *Physical Exam - Vital Signs Last Vital Signs Temp Pulse Resp BP Pulse Ox 98.1 F 75 19 137/94 87 L 06/15/19 17:32 06/15/19 17:32 06/15/19 17:32 06/15/19 17:32 06/15/19 17:32 - Physical Exam 06/15/19 18:44 GENERAL: Well developed, well nourished. Awake and alert. No acute distress. HEENT: Normocephalic, atraumatic. PERRLA, EOMI. No conjunctival pallor. Sclera are non-icteric. Moist mucous membranes. Oropharynx is clear. NECK: Supple. Full ROM. CARDIOVASCULAR: Regular rate and rhythm. No murmurs, rubs, or gallops. Distal pulses are 2+ and symmetric. PULMONARY: No evidence of respiratory distress. Lungs clear to auscultation bilaterally. No wheezing, rales or rhonchi. MUSCULOSKELETAL Normal range of motion at all joints. SKIN: Warm and dry. Normal capillary refill. No rashes. No cyanosis. NEUROLOGICAL: Alert, awake, appropriate. Gait is normal without ataxia. PSYCHIATRIC: Cooperative. Good eye contact. Appropriate mood General Appearance: Yes: Nourished, Appropriately Dressed. No: Apparent Distress <Anshul Alford - Last Filed: 06/15/19 19:10> - Vital Signs Last Vital Signs Temp Pulse Resp BP Pulse Ox 98.1 F 70 18 132/77 100 06/15/19 17:32 06/15/19 19:46 06/15/19 19:46 06/15/19 19:46 06/15/19 20:46 <Magda Saldaña Dominickcindy - Last Filed: 06/17/19 10:24> ED Treatment Course - RADIOLOGY Radiology Studies Ordered: Category Date Time Status CHEST PA & LAT [RAD] Stat Radiology 06/15/19 18:36 Ordered <Anshul Alford - Last Filed: 06/15/19 19:10> - Medications Given in the ED: ED Medications Discontinued Medications Generic Name Dose Route Start Last Admin Trade Name Albertq PRN Reason Stop Dose Admin Acetaminophen 975 mg 06/15/19 17:34 06/15/19 18:42 Tylenol - PO 06/15/19 17:35 975 mg ONCE ONE Administration Albuterol/Ipratropium 4 amp 06/15/19 18:30 06/15/19 18:42 Duoneb - NEB 06/15/19 18:31 4 amp ONCE ONE Administration <Magda Saldaña - Last Filed: 06/17/19 10:24> Medical Decision Making - Medical Decision Making 06/15/19 18:10 Patient with no significant past medical history present with complaint of dizziness, intermittent shortness of breath and lightheadedness 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 Patient reports started feeling dizziness and the fire department was called which responded and was dropped to the EMS to the ER by EMS for evaluation by carbon monoxide exposure. Denies nausea, vomiting, blurry vision or change in vision. Patient satting at 87% room air on presentation with no acute distress. Lungs clear to auscultation bilateral patient no acute respiratory distress. Given low O2 sat, will do ABG carboxyhemoglobin level. DuoNeb ordered with rebreather to help improve oxygenation. Chest x-ray ordered to rule out acute chest abnormality 06/15/19 19:11 Patient carboxyhemoglobin level shows no acute abnormality. Patient pending chest x-ray. Patient signed out to MOTHERCRAFT NURSE Justin Vera for follow-up management <RocíoAnshul Gonzalez - Last Filed: 06/15/19 19:10> - Medical Decision Making The patient was seen and evaluated in conjunction with midlevel provider under my direct supervision, ancillary studies were reviewed. I agree with the plan as outlined with RENU Alford. HPI, workup/dispo as outlined. VS reviewed, initially mildly hypoxic in high 80s on RA, given O2 via 100% NRB Vital Signs Temp Pulse Resp BP Pulse Ox 98.1 F 70 18 132/77 100 06/15/19 17:32 06/15/19 19:46 06/15/19 19:46 06/15/19 19:46 06/15/19 20:46 abg, cxr wnl. NRB O2 to displace COHb pt is well appearing, no distress VS reviewed, improved with NRB 100% RA, titrate off no acute events in the ED anticipate discharge, pcp followup, return precautions <Magda Saldaña - Last Filed: 06/17/19 10:24> Discharge - Discharge Information Problems reviewed: Yes <Anshul Alford - Last Filed: 06/15/19 19:10> <Magda Saldaña - Last Filed: 06/17/19 10:24> - Discharge Information Clinical Impression/Diagnosis: Headache Qualifiers: Headache type: unspecified Headache chronicity pattern: acute headache Intractability: not intractable Qualified Code(s): R51 - Headache Carbon dioxide poisoning Qualifiers: Encounter type: initial encounter Injury intent: accidental or unintentional Qualified Code(s): T59.7X1A - Toxic effect of carbon dioxide, accidental ( unintentional), initial encounter Condition: Stable Disposition: HOME - Patient Discharge Instructions Patient Printed Discharge Instructions: Carbon Monoxide Poisoning Additional Instructions: please follow up with your PCP as soon as possible. return to the ER for any worsening symptoms - Post Discharge Activity Work/Back to School Note: Back to Work
[2019-06-15 19:04] LABS: ARTERIAL BLOOD GAS PCO2 37.8 mmHg (35-45); ARTERIAL BLOOD GAS PO2 206 mmHg (80-100)
[2019-06-15 19:05] LABS: ALLENS TEST POSITIVE; ARTERIAL BLD GAS O2 SATURATION 99.7 % (95-98); ARTERIAL BLOOD GAS BASE EXCESS -1.4 meq/l (-2-2); CARBOXYHEMOGLOBIN 0.8 % (0-2)
--- NOTE | 2019-06-15 19:40 | PDOC ---
*Physical Exam - Vital Signs Last Vital Signs Temp Pulse Resp BP Pulse Ox 98.1 F 75 19 137/94 87 L 06/15/19 17:32 06/15/19 17:32 06/15/19 17:32 06/15/19 17:32 06/15/19 17:32 - Physical Exam General Appearance: Yes: Appropriately Dressed Respiratory/Chest: positive: Lungs Clear, Normal Breath Sounds Cardiovascular: positive: Regular Rhythm, Regular Rate Gastrointestinal/Abdominal: positive: Normal Bowel Sounds, Soft Neurologic: positive: Fully Oriented, Alert ED Treatment Course - ADDITIONAL ORDERS Additional order review: Laboratory Results 06/15/19 18:57 Anticoagulation Therapy No Result Required. Puncture Site Right radial ABG pH 7.40 ABG pCO2 at Pt Temp 37.8 ABG pO2 at Pt Temp 206 H ABG HCO3 22.7 ABG O2 Sat (Measured) 99.7 H ABG O2 Content 15.7 ABG Base Excess -1.4 Matias Test Positive Carboxyhemoglobin 0.8 Methemoglobin < 1.0 O2 Delivery Device Aerosol tx Oxygen Flow Rate 6 lpm Vent Mode No Result Required. Vent Rate No Result Required. Mechanical Rate No Result Required. Pressure Support Vent No Result Required. - Medications Given in the ED: ED Medications Discontinued Medications Generic Name Dose Route Start Last Admin Trade Name Freq PRN Reason Stop Dose Admin Acetaminophen 975 mg 06/15/19 17:34 06/15/19 18:42 Tylenol - PO 06/15/19 17:35 975 mg ONCE ONE Administration Albuterol/Ipratropium 4 amp 06/15/19 18:30 06/15/19 18:42 Duoneb - NEB 06/15/19 18:31 4 amp ONCE ONE Administration Medical Decision Making - Medical Decision Making 06/15/19 20:37 patient is feeling better. chest is clear. v/s improved. will d/c home Discharge - Discharge Information Problems reviewed: Yes Clinical Impression/Diagnosis: Headache Qualifiers: Headache type: unspecified Headache chronicity pattern: acute headache Intractability: not intractable Qualified Code(s): R51 - Headache Carbon dioxide poisoning Qualifiers: Encounter type: initial encounter Injury intent: accidental or unintentional Qualified Code(s): T59.7X1A - Toxic effect of carbon dioxide, accidental ( unintentional), initial encounter Condition: Stable Disposition: HOME - Follow up/Referral - Patient Discharge Instructions Patient Printed Discharge Instructions: Carbon Monoxide Poisoning Additional Instructions: please follow up with your PCP as soon as possible. return to the ER for any worsening symptoms - Post Discharge Activity Work/Back to School Note: Back to Work
[2019-06-15 19:47] VITALS: BP 132/77; PULSE 70
== END 2019-06-15 20:53 | disposition home or self-care (01) ==
LOC: JER 17:24
PROC: 3E0F7GC Introduction of Other Therapeutic Substance into Respiratory Tract, Via Natural or Artificial Opening (ICD-10-PCS; principal; 2019-06-15)
DX: T59.7X1A Toxic effect of carbon dioxide, accidental (unintentional), initial encounter (principal); R51 Headache; R06.02 Shortness of breath; Y92.59 Other trade areas as the place of occurrence of the external cause
CPT/HCPCS: 36600; 71046-TC-FY; 82375; 82803; 83050; 94640; 99283-25

== ENCOUNTER 2019-12-17 04:44 | Day surgery (SDC) | payer OTHER ==
[2019-12-16 10:22] VITALS: BMI 32.1
[2019-12-17 07:52] LABS: HEMATOCRIT 36.2 % (32.4-45.2); HEMOGLOBIN 11.9 GM/dL (10.7-15.3); MCH 28.5 pg (25.7-33.7); MCHC 32.9 g/dl (32.0-36.0); MEAN CELL VOLUME 86.6 fl (80-96); MEAN PLT VOLUME 8.8 fl (7.5-11.1); PLATELET COUNT 242 K/MM3 (134-434); RBC 4.18 M/mm3 (3.60-5.2); RDW 16.6 % (11.6-15.6)
[2019-12-17 07:59] LABS: INR 0.98 (0.83-1.09); PROTHROMBIN TIME (PATIENT) 11.6 SEC (9.7-13.0)
--- NOTE | 2019-12-17 09:46 | HP ---
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: Alzheimer's, CVA, Dementia, Migraine, Multiple Sclerosis, Peripheral Neuropathy, Parkinson's, Seizure, Syncope, TIA, Vertigo, Other Cardiovascular: No: AFIB, Aneurysm, Aortic Insufficiency, Aortic Stenosis, CAD, CHF, Deep Vein Thrombosis, HTN, Hyperlipdemia, [place], Mitral Insufficiency, Mitral Stenosis, Murmur, Pulmonary Hypertension, Other Pulmonary: No: Asthma, Bronchitis, Cancer, COPD, O2 Dependent, Pneumonia, Previously Intubated, Pulmonary Embolus, Pulmonary Fibrosis, Sleep Apnea, Other Gastrointestinal: Yes: Gastritis, GERD, Other Renal/: Yes: UTI ...LMP: 11/25/19 ...: 10 ...Para: 4 Heme/Onc: Yes: Anemia (non compliant with pnv & iron & diet) Psych: Yes: Other (declines) - Past Surgical History Past Surgical History: Yes: Appendectomy (2005), - Smoking History Smoking history: Never smoked Have you smoked in the past 12 months: No - Alcohol/Substance Use Hx Alcohol Use: No History of Substance Use: reports: None - Social History Usual Living Arrangement: Yes: With Spouse Do you think of yourself as: Straight/Heterosexual ADL: Independent History of Recent Travel: No Home Medications - Allergies Allergies/Adverse Reactions: Allergies Allergy/AdvReac Type Severity Reaction Status Date / Time No Known Allergies Allergy Verified 12/16/19 10:15 - Home Medications Home Medications: Ambulatory Orders Ferrous Sulfate 325 mg PO DAILY 12/16/19 Review of Systems - Review of Systems Constitutional: reports: No Symptoms Cardiovascular: reports: No Symptoms Respiratory: reports: No Symptoms Gastrointestinal: reports: No Symptoms Physical Examination Vital Signs: Vital Signs Temperature 97.0 F L 12/17/19 08:25 Pulse Rate 72 12/17/19 08:25 Respiratory Rate 16 12/17/19 08:25 Blood Pressure 122/72 12/17/19 08:25 O2 Sat by Pulse Oximetry (%) 97 12/17/19 08:25 Constitutional: Yes: Well Nourished, No Distress, Calm Cardiovascular: Yes: WNL, Regular Rate and Rhythm Respiratory: Yes: WNL, Regular, CTA Bilaterally Gastrointestinal: Yes: WNL, Normal Bowel Sounds Labs: CBC, BMP 12/17/19 07:30 Problem List - Problems (1) Sterilization Code(s): Z30.2 - ENCOUNTER FOR STERILIZATION Assessment/Plan 29yo here for sterilization NPO, IVFs SCDs [place] Risks reviewed, including bleeding/infection/injury to surrounding organs. Declined alternatives Leyla Zamora MD
[2019-12-17] MEDS ORDERED: DEXAMETHASONE SOD PHOSPHATE 4 MG/1 ML VIAL ONE (10:16)
[2019-12-17] MEDS ORDERED: KETOROLAC TROMETHAMINE 30 MG/1 ML VIAL ONE (10:16)
[2019-12-17] MEDS ORDERED: PROPOFOL 20 ML ONE (10:17)
[2019-12-17] MEDS ORDERED: SUCCINYLCHOLINE CHLORIDE 200 MG/10 ML SYRINGE ONE (10:17)
[2019-12-17] MEDS ORDERED: ROCURONIUM BROMIDE 50 MG/5 ML SYRINGE ONE (10:17)
[2019-12-17] MEDS ORDERED: MIDAZOLAM HCL 2 MG/2 ML SINGLE DOSE VIAL ONE (10:17)
[2019-12-17] MEDS ORDERED: NEOSTIGMINE METHYLSULFATE 0.5 MG/ML - 10 ML MDV ONE (11:11)
[2019-12-17] MEDS ORDERED: GLYCOPYRROLATE 0.2 MG/1 ML VIAL ONE ×2 (11:11)
[2019-12-17] MEDS ORDERED: BUPIVACAINE HCL/PF 0.5% (5 MG/ML) 30 ML VIAL IJ ONE (11:11)
--- NOTE | 2019-12-17 11:23 | OP ---
Operative Note - Note: Operative Date: 12/17/19 Pre-Operative Diagnosis: Desires Permanent Sterilization Operation: Laparoscopic Bilateral Salpingectomy, Left Ovarian Cystectomy Findings: Normal uterus, normal fallopian tubes bilaterally, normal right ovary, left ovarian solid cyst Post-Operative Diagnosis: Same as Pre-op Surgeon: Daylin Zamora Presetter Operator: Andre Bustamante Anesthesiologist/SPRING FITTER: Nikko Dunlap Anesthesia: General Estimated Blood Loss (mls): 15 Drains, Volume Out (mls): 400 (clear urine) Operative Report Dictated: Yes
--- NOTE | 2019-12-17 11:24 | SURG ---
Surgery Marketing Program Manager Note Marketing Program Manager: Andre Bustamante PA-C Date of Service: 12/17/19 Diagnosis: Desires Permanent Sterilization Procedure: Laparoscopic Bilateral Salpingectomy, Left Ovarian Cystectomy I was present for the entirety of the operative procedure. For further detail, please refer to operative report. Visit type - Case Type Case Type: Scheduled - Emergency Emergency Visit: No - New patient This patient is new to me today: Yes Date on this admission: 12/17/19 - Critical Care Critical Care patient: No
[2019-12-17] MEDS ORDERED: PROMETHAZINE HCL 25 MG/1 ML VIAL IVPUSH PRN (11:26)
[2019-12-17] MEDS ORDERED: oxyCODONE HCL 5 MG TABLET PO PRN (11:26)
[2019-12-17] MEDS ORDERED: ONDANSETRON 4 MG/2 ML VIAL IVPUSH PRN (11:26)
--- NOTE | 2019-12-17 14:15 | OP ---
DATE OF OPERATION: 12/17/2019 PREOPERATIVE DIAGNOSIS: Desires permanent sterilization. POSTOPERATIVE DIAGNOSES: 1. Desires permanent sterilization. 2. Left ovarian cyst. OPERATION: Laparoscopic bilateral salpingectomy, left ovarian cystectomy. ANESTHESIA: General. SURGEON: Daylin Zamora MD TOBACCO SAMPLE PULLER: Andre Bustamante PA-C ESTIMATED BLOOD LOSS: 15. URINE OUTPUT: Clear urine, 400 mL. FINDINGS: Normal uterus, normal fallopian tubes bilaterally, normal right ovary, left ovarian solid cyst. COMPLICATIONS: None. CONDITION: Stable to recovery room. DESCRIPTION OF PROCEDURE: After the appropriate consents were signed, patient was taken to the operating room. General anesthesia was administered. She was placed in dorsal lithotomy position. The abdomen was prepped and draped in normal sterile fashion. Sterile Barroso catheter was inserted into the bladder. Timeout was performed, confirming correct patient and procedure. Next, 0.25% Marcaine was injected into the umbilicus, then a 5-mm incision was made with a scalpel to accommodate the 5-mm laparoscope. The laparoscope was introduced under direct visualization with appropriate placement. The abdomen was insufflated with gas. The patient was placed in Trendelenburg position. Left lower quadrant, right lower quadrant 5-mm ports were then also inserted under direct visualization without difficulty. Patient's uterus was noted to be normal. Both fallopian tubes were noted to be normal. The patient's right ovary was also normal, and the patient's left ovary was noted to have a solid-like mass. The patient's left fallopian tube was grasped with a clamp. Using the LigaSure and subsequent bites along the mesosalpinx and round ligament all the way to its insertion into the uterus, the fallopian tube was transected and freed. The fallopian tube was then removed from the patient's left lower quadrant port, and then the patient's right fallopian tube was also grasped with a grasper, carried to the fimbriated edges and noted to be normal. In subsequent bites on the mesosalpinx and broad ligament under the insertion at the uterus, the LigaSure was used to free the patient's right fallopian tube. This was then removed through the patient's right lower quadrant port. Decision was then made to remove the patient's solid-looking left ovarian cyst. A needle aspirator was used after the ovary was stabilized and introduced into the cyst, with no free fluid removed. Then using the LigaSure device at the base of the mass, in subsequent bites the ovarian cancer was then removed. Bite sites were made hemostatic with the LigaSure. The mass was then removed through the patient's left lower quadrant port. The incision planes and bite sites of the fallopian tubes and the ovarian cyst were all inspected, noted to be hemostatic. The left lower quadrant, right lower quadrant ports were removed under direct visualization. The umbilical port was removed without difficulty. The abdomen was deflated of gas. The incisions were closed with 4-0 Biosyn. Bandages were applied. The Barroso catheter was removed. The patient was taken from the operating room to the recovery area in stable condition. MD JC JOSEPH/[id number]
[2019-12-17 17:04] VITALS: BP 119/66; PULSE 75; TEMP 97.1
--- NOTE | 2019-12-21 15:11 | PATH ---
Surgical Pathology Report Patient Name: SRI IBARRA Med. Rec. #: [id number] /Age/Gender: 1990 (Age: 29) / F Account: [id number] Location: [facility] Taken: 12/17/2019 Received: 12/17/2019 Reported: 12/21/2019 Physicians: Daylin Zamora Specimen(s) Received A: LEFT FALLOPIAN TUBE B: RIGHT FALLOPIAN TUBE C: LEFT OVARIAN CYST Clinical History Desires permanent sterilization, Final Diagnosis A. LEFT FALLOPIAN TUBE, SALPINGECTOMY: PORTION OF FALLOPIAN TUBE WITH ENDOSALPINGIOSIS. COMPLETE CROSS SECTION OF LUMEN IDENTIFIED. B. RIGHT FALLOPIAN TUBE, SALPINGECTOMY: PORTION OF FALLOPIAN TUBE WITH ENDOSALPINGIOSIS. COMPLETE CROSS SECTION OF LUMEN IDENTIFIED. C. LEFT OVARIAN CYST, CYSTECTOMY: HEMORRHAGIC CORPUS LUTEUM CYST. Electronically Signed Dari Fischer M.D. Gross Description A. Received in formalin labeled "left fallopian tube," is a 5 cm in length fimbriated fallopian tube. The outer surface is agudelo-vega. Sectioning reveals an unremarkable lumen. [employer] sections are submitted in 2 cassettes as follows: 1-fimbria; 2-cross sections of fallopian tube. B. Received in formalin labeled "left fallopian tube," is a 6 cm in length fimbriated fallopian tube. The outer surface is agudelo-vega. Sectioning reveals an unremarkable lumen. [employer] sections are submitted in 2 cassettes as follows: 1-fimbria; 2-cross sections of fallopian tube. C. Received in formalin labeled "left ovarian cyst" are multiple irregular fragments of yellow-agudelo fibromembranous tissue measuring 3 x 2 x 0.5 cm in aggregate. The entire specimen is submitted in one cassette. MLSZ/12/17/2019 sanml/12/17/2019
== END 2019-12-17 15:30 | disposition home or self-care (01) ==
LOC: JASU-SURG 04:44
PROVIDERS: ATTEND Obstetrics & Gynecology
PROC: 0UB14ZZ Excision of Left Ovary, Percutaneous Endoscopic Approach (ICD-10-PCS; 2019-12-17)
PROC: 0U574ZZ Destruction of Bilateral Fallopian Tubes, Percutaneous Endoscopic Approach (ICD-10-PCS; principal; 2019-12-17 09:30)
DX: Z30.2 Encounter for sterilization (principal); N83.202 Unspecified ovarian cyst, left side
CPT/HCPCS: 36415; 84703; 85027; 85610; 86922; 88302-TC; 88305-TC; 94760

== ENCOUNTER 2020-09-06 10:38 | Emergency (ER) | payer OTHER ==
[2020-09-08 10:07] LABS: SARS-CoV-2 NAA Not Detected (Not Detected)
== END 2020-09-06 12:14 | disposition home or self-care (01) ==
LOC: JVIRT 10:38
DX: Z20.822 Contact with and (suspected) exposure to COVID-19 (principal)
CPT/HCPCS: C9803; G2251-GT; Q3014-GT; U0003; U0005

== ENCOUNTER 2020-10-27 19:16 | Emergency (ER) | payer OTHER ==
[2020-10-27 19:27] VITALS: BP 137/80; PULSE 87; TEMP 98.9; BMI 27.4
== END 2020-10-27 20:57 | disposition home or self-care (01) ==
LOC: JERFT 19:16
DX: J32.9 Chronic sinusitis, unspecified (principal)
CPT/HCPCS: 99281-25

== ENCOUNTER 2021-10-22 17:28 | Emergency (ER) | payer OTHER ==
[2021-10-22 17:47] VITALS: BP 145/85; PULSE 108; TEMP 98.3; BMI 31.6
[2021-10-22] MEDS ORDERED: KETOROLAC TROMETHAMINE 30 MG/1 ML VIAL IM ONE (18:24)
[2021-10-22] MEDS ORDERED: ACETAMINOPHEN 325 MG TABLET (FP) PO ONE (18:24)
[2021-10-22] MEDS ORDERED: CYCLOBENZAPRINE HCL 10 MG TABLET (FP) PO ONE (18:25)
[2021-10-22] MEDS ORDERED: ACETAMINOPHEN 325 MG TABLET (FP) ONE (18:30)
[2021-10-22] MEDS ORDERED: CYCLOBENZAPRINE HCL 10 MG TABLET (FP) ONE (18:31)
[2021-10-22] MEDS ORDERED: KETOROLAC TROMETHAMINE 30 MG/1 ML VIAL ONE (18:31)
== END 2021-10-22 21:01 | disposition home or self-care (01) ==
LOC: JERFT 17:28
PROC: 3E0233Z Introduction of Anti-inflammatory into Muscle, Percutaneous Approach (ICD-10-PCS; principal; 2021-10-22)
DX: M79.601 Pain in right arm (principal)
CPT/HCPCS: 93971; 99284-25

== ENCOUNTER 2023-04-05 01:17 | Emergency (ER) | payer OTHER ==
[2023-04-05 01:28] VITALS: BP 137/93; PULSE 96; RESP 20; TEMP 98.2; BMI 34.7
[2023-04-05] MEDS ORDERED: ONDANSETRON 4 MG/2 ML VIAL IVPUSH ONE (01:46)
[2023-04-05] MEDS ORDERED: MAG HYDROX/AL HYDROX/SIMETH 30 ML UNIT-DOSE CUP PO ONE (01:46)
[2023-04-05] MEDS ORDERED: FAMOTIDINE 20 MG/50 ML IVPB 20 MG/50 ML MG IVPB ONE ×2 (01:46→02:34)
[2023-04-05] MEDS ORDERED: MAG HYDROX/AL HYDROX/SIMETH 30 ML UNIT-DOSE CUP ONE (02:34)
[2023-04-05] MEDS ORDERED: ONDANSETRON 4 MG/2 ML VIAL ONE (02:34)
[2023-04-05 02:49] LABS: BASO % 0.2 % (0-2.0); EOS % 0.3 % (0-4.5); HEMATOCRIT 37.6 % (32.4-45.2); LYMPH % 9.3 % (8-40); MCH 28.3 pg (25.7-33.7); MEAN CELL VOLUME 88.4 fl (80-96); MONO % 4.6 % (3.8-10.2); NEUT % 85.6 % (42.8-82.8); PLATELET COUNT 336 10^3/uL (134-434); RBC 4.25 M/mm3 (3.60-5.2); RDW 14.7 % (11.6-15.6)
[2023-04-05 03:01] LABS: POTASSIUM 4.5 mmol/L (3.5-5.1)
[2023-04-05 03:03] LABS: CALCIUM 9.8 mg/dL (8.5-10.1)
[2023-04-05 03:04] LABS: ALBUMIN 3.7 g/dl (3.4-5.0)
[2023-04-05 03:06] LABS: CREATININE 0.6 mg/dL (0.55-1.3)
[2023-04-05 03:08] LABS: BILIRUBIN,TOTAL 0.3 mg/dL (0.2-1); TOT PROT 7.6 g/dl (6.4-8.2)
[2023-04-05 03:25] LABS: PH,URINE 6.5 (5.0-8.0); URINE APPEARANCE CLEAR; URINE BILIRUBIN NEGATIVE (NEGATIVE); URINE COLOR YELLOW; URINE GLUCOSE (UA) NEGATIVE (NEGATIVE); URINE KETONE NEGATIVE (NEGATIVE); URINE LEUK ESTERASE NEGATIVE (NEGATIVE); URINE NITRITE NEGATIVE (NEGATIVE); URINE PROTEIN NEGATIVE (NEGATIVE); URINE UROBILINOGEN 0.2 mg/dL (0.2-1.0)
== END 2023-04-05 05:47 | disposition home or self-care (01) ==
LOC: JER 01:17
PROC: 3E033GC Introduction of Other Therapeutic Substance into Peripheral Vein, Percutaneous Approach (ICD-10-PCS; principal; 2023-04-05)
PROC: 3E033GC Introduction of Other Therapeutic Substance into Peripheral Vein, Percutaneous Approach (ICD-10-PCS; 2023-04-05)
DX: R10.11 Right upper quadrant pain (principal); R11.0 Nausea; R35.0 Frequency of micturition; K80.20 Calculus of gallbladder without cholecystitis without obstruction; K80.50 Calculus of bile duct without cholangitis or cholecystitis without obstruction; R68.83 Chills (without fever)
CPT/HCPCS: 36415; 74176-TC; 76705-TC; 80053; 81003; 83690; 84703; 85025; 87086; 93005; 93010; 99285-25

== ENCOUNTER 2023-06-14 00:37 | Emergency (ER) | payer OTHER ==
[2023-06-14 00:49] VITALS: BP 134/91; PULSE 81; RESP 18; TEMP 97.7; BMI 34.7
[2023-06-14] MEDS ORDERED: ONDANSETRON 4 MG/2 ML VIAL ONE (01:27)
[2023-06-14] MEDS ORDERED: ACETAMINOPHEN INJECTION 100 ML IVPB ONE (01:27)
[2023-06-14] MEDS ORDERED: FAMOTIDINE 20 MG/50 ML IVPB 20 MG/50 ML MG IVPB ONE (01:28)
[2023-06-14] MEDS: ACETAMINOPHEN 1000 MG/100 ML BAG IVPB ONE (01:44)
[2023-06-14 01:49] LABS: BASO % 0.3 % (0-2.0); EOS % 0.6 % (0-4.5); HEMATOCRIT 36.5 % (32.4-45.2); HEMOGLOBIN 12.2 GM/dL (10.7-15.3); LYMPH % 24.3 % (8-40); MCH 29.3 pg (25.7-33.7); MCHC 33.4 g/dl (32.0-36.0); MEAN CELL VOLUME 87.7 fl (80-96); MEAN PLT VOLUME 7.6 fl (7.5-11.1); MONO % 6.7 % (3.8-10.2); NEUT % 68.1 % (42.8-82.8); PLATELET COUNT 324 10^3/uL (134-434); RBC 4.16 M/mm3 (3.60-5.2); RDW 15.6 % (11.6-15.6); WHITE BLOOD COUNT 9.1 K/mm3 (4.0-10.0)
[2023-06-14] MEDS: LACTATED RINGERS SOLUTION 1000 ML INFUS.BAG IV ONE (02:07)
[2023-06-14] MEDS: ONDANSETRON 4 MG/2 ML VIAL IVPUSH ONE (02:08)
[2023-06-14] MEDS: FAMOTIDINE 20 MG/50 ML IVPB 20 MG/50 ML MG IVPB ONE (02:08)
[2023-06-14 02:09] LABS: CALCIUM 10.3 mg/dL (8.5-10.1)
[2023-06-14 02:11] LABS: ALBUMIN 3.6 g/dl (3.4-5.0); BLOOD UREA NITROGEN 11.6 mg/dL (7-18); MAGNESIUM 1.9 mg/dL (1.8-2.4)
[2023-06-14 02:12] LABS: CREATININE 0.6 mg/dL (0.55-1.3)
[2023-06-14 02:15] LABS: BILIRUBIN,TOTAL 0.3 mg/dL (0.2-1); TOT PROT 7.4 g/dl (6.4-8.2)
[2023-06-14 02:17] LABS: PH,URINE 6.5 (5.0-8.0); URINE APPEARANCE CLEAR; URINE BILIRUBIN NEGATIVE (NEGATIVE); URINE COLOR YELLOW; URINE GLUCOSE (UA) NEGATIVE (NEGATIVE); URINE KETONE NEGATIVE (NEGATIVE); URINE LEUK ESTERASE NEGATIVE (NEGATIVE); URINE NITRITE NEGATIVE (NEGATIVE); URINE PROTEIN NEGATIVE (NEGATIVE); URINE UROBILINOGEN 0.2 mg/dL (0.2-1.0)
[2023-06-14 02:42] LABS: PROTHROMBIN TIME (PATIENT) 11.6 SEC (9.7-13.0)
[2023-06-14 02:45] LABS: ACTIVATED PTT 31.6 SECONDS (25.2-36.5)
[2023-06-14] MEDS ORDERED: MAG HYDROX/AL HYDROX/SIMETH 30 ML UNIT-DOSE CUP ONE (03:03)
[2023-06-14] MEDS: MAG HYDROX/AL HYDROX/SIMETH 30 ML UNIT-DOSE CUP PO ONE (03:04)
[2023-06-14] MEDS ORDERED: morphine SULFATE 4 MG/ML VIAL ONE (04:22)
[2023-06-14] MEDS: morphine CARPU-JECT 4 MG/1 ML DISP.SYRIN IVPUSH ONE (04:25)
[2023-06-14] MEDS: SODIUM CHLORIDE 0.9% 500 ML INFUS.BAG IV ONE (04:55)
== END 2023-06-14 06:46 | disposition home or self-care (01) ==
LOC: JER 00:37
PROC: 3E033GC Introduction of Other Therapeutic Substance into Peripheral Vein, Percutaneous Approach (ICD-10-PCS; principal; 2023-06-14)
PROC: 3E033NZ Introduction of Analgesics, Hypnotics, Sedatives into Peripheral Vein, Percutaneous Approach (ICD-10-PCS; 2023-06-14)
PROC: 3E033GC Introduction of Other Therapeutic Substance into Peripheral Vein, Percutaneous Approach (ICD-10-PCS; 2023-06-14)
PROC: 3E033GC Introduction of Other Therapeutic Substance into Peripheral Vein, Percutaneous Approach (ICD-10-PCS; 2023-06-14)
DX: R10.11 Right upper quadrant pain (principal); N20.0 Calculus of kidney; K80.20 Calculus of gallbladder without cholecystitis without obstruction; Z20.822 Contact with and (suspected) exposure to COVID-19
CPT/HCPCS: 0241U-QW; 36415; 74176-TC; 76705-TC; 80053; 81003; 83690; 83735; 84484; 84703; 85025; 85610; 85730; 86850; 86900; 86901; 87086; 93005; 93010; 99285-25; J0131

== ENCOUNTER 2023-07-20 06:19 | Day surgery (SDC) | payer OTHER ==
[2023-07-20 06:34] VITALS: BMI 34.7
[2023-07-20] MEDS ORDERED: KETOROLAC TROMETHAMINE 15 MG/ML VIAL ONE (08:03)
[2023-07-20] MEDS ORDERED: ONDANSETRON 4 MG/2 ML VIAL ONE ×3 (08:03→18:34)
[2023-07-20] MEDS: SODIUM CHLORIDE 0.9% 500 ML INFUS.BAG IV ONE (08:13)
[2023-07-20] MEDS: KETOROLAC TROMETHAMINE 15 MG/ML VIAL IVPUSH ONE (08:14)
[2023-07-20] MEDS: ONDANSETRON 4 MG/2 ML VIAL IVPUSH ONE ×2 (08:15→11:01)
[2023-07-20 08:26] LABS: PH,URINE 6.5 (5.0-8.0); URINE APPEARANCE CLEAR; URINE BILIRUBIN NEGATIVE (NEGATIVE); URINE COLOR YELLOW; URINE GLUCOSE (UA) NEGATIVE (NEGATIVE); URINE KETONE TRACE (NEGATIVE); URINE LEUK ESTERASE NEGATIVE (NEGATIVE); URINE NITRITE NEGATIVE (NEGATIVE); URINE PROTEIN TRACE (NEGATIVE); URINE UROBILINOGEN 0.2 mg/dL (0.2-1.0)
[2023-07-20 08:29] LABS: BASO % 0.2 % (0-2.0); EOS % 0.2 % (0-4.5); HEMATOCRIT 37.8 % (32.4-45.2); HEMOGLOBIN 12.5 GM/dL (10.7-15.3); MCH 28.9 pg (25.7-33.7); MEAN CELL VOLUME 87.6 fl (80-96); MEAN PLT VOLUME 8.5 fl (7.5-11.1); MONO % 5.1 % (3.8-10.2); NEUT % 83.5 % (42.8-82.8); PLATELET COUNT 323 10^3/uL (134-434); RBC 4.31 M/mm3 (3.60-5.2); RDW 16.1 % (11.6-15.6); WHITE BLOOD COUNT 12.2 K/mm3 (4.0-10.0)
[2023-07-20 08:32] LABS: INR 1.07 (0.83-1.09); PROTHROMBIN TIME (PATIENT) 12.4 SEC (9.7-13.0)
[2023-07-20 08:35] LABS: ACTIVATED PTT 30.1 SECONDS (25.2-36.5)
[2023-07-20 08:39] LABS: POTASSIUM 4.9 mmol/L (3.5-5.1)
[2023-07-20 08:41] LABS: ALBUMIN 3.8 g/dl (3.4-5.0); BLOOD UREA NITROGEN 8.2 mg/dL (7-18); CALCIUM 10.3 mg/dL (8.5-10.1)
[2023-07-20 08:43] LABS: CREATININE 0.6 mg/dL (0.55-1.3)
[2023-07-20 08:46] LABS: BILIRUBIN,TOTAL 0.6 mg/dL (0.2-1); TOT PROT 8.1 g/dl (6.4-8.2)
[2023-07-20] MEDS ORDERED: morphine SULFATE 4 MG/ML VIAL ONE (10:55)
[2023-07-20] MEDS: morphine CARPU-JECT 4 MG/1 ML DISP.SYRIN IVPUSH ONE (11:01)
[2023-07-20] MEDS ORDERED: FAMOTIDINE 20 MG/50 ML IVPB 20 MG/50 ML MG IVPB ONE (12:37)
[2023-07-20] MEDS ORDERED: MAG HYDROX/AL HYDROX/SIMETH 30 ML UNIT-DOSE CUP ONE (12:37)
[2023-07-20] MEDS: DEXTROSE 5%-LACTATED RINGERS 1,000 ML IV SCH (12:42)
[2023-07-20] MEDS: MAG HYDROX/AL HYDROX/SIMETH -MYLANTA- ORAL SUSPENSION PO ONE (12:42)
[2023-07-20] MEDS: FAMOTIDINE 20 MG/50 ML IVPB 20 MG/50 ML MG IVPB ONE (12:42)
[2023-07-20] MEDS ORDERED: HYDROmorphone HCl 2 MG/ML VIAL ONE (16:23)
[2023-07-20] MEDS: HYDROmorphone HCl 2 MG/ML VIAL IVPUSH ONE (16:40)
[2023-07-20] MEDS: ONDANSETRON 4 MG/2 ML VIAL IVPUSH PRN (18:43)
[2023-07-20] MEDS: ACETAMINOPHEN 1000 MG/100 ML BAG IVPB PRN (20:37)
[2023-07-21] MEDS: KETOROLAC TROMETHAMINE 30 MG/1 ML VIAL IVPUSH ONE (07:10)
[2023-07-21 09:40] LABS: BASO % 0.3 % (0-2.0); EOS % 0.3 % (0-4.5); HEMATOCRIT 39.1 % (32.4-45.2); HEMOGLOBIN 12.7 GM/dL (10.7-15.3); LYMPH % 10.2 % (8-40); MCH 28.5 pg (25.7-33.7); MCHC 32.4 g/dl (32.0-36.0); MEAN PLT VOLUME 8.4 fl (7.5-11.1); MONO % 10.3 % (3.8-10.2); NEUT % 78.9 % (42.8-82.8); PLATELET COUNT 305 10^3/uL (134-434); RBC 4.44 M/mm3 (3.60-5.2); RDW 15.5 % (11.6-15.6); WHITE BLOOD COUNT 11.5 K/mm3 (4.0-10.0)
[2023-07-21 09:49] LABS: POTASSIUM 3.9 mmol/L (3.5-5.1)
[2023-07-21 09:51] LABS: CALCIUM 10.7 mg/dL (8.5-10.1)
[2023-07-21 09:52] LABS: BLOOD UREA NITROGEN 4.3 mg/dL (7-18)
[2023-07-21 09:54] LABS: CREATININE 0.6 mg/dL (0.55-1.3)
[2023-07-21] MEDS ORDERED: BUPIVACAINE HCL/PF 0.25% (2.5MG/ML) 10 ML VIAL ONE ×2 (10:52→11:00)
[2023-07-21] MEDS ORDERED: PROPOFOL 20 ML ONE ×2 (11:03→12:35)
[2023-07-21] MEDS ORDERED: FENTANYL CITRATE/PF 50 MCG/ML VIAL ONE ×6 (11:03→15:02)
[2023-07-21] MEDS ORDERED: SUCCINYLCHOLINE CHLORIDE 200 MG/10 ML SYRINGE ONE (11:04)
[2023-07-21] MEDS ORDERED: MIDAZOLAM HCL 2 MG/2 ML SINGLE DOSE VIAL ONE (11:04)
[2023-07-21] MEDS ORDERED: ROCURONIUM BROMIDE 50 MG/5 ML SYRINGE ONE (11:54)
[2023-07-21] MEDS: ceFAZolin SODIUM 1 GM VIAL IVPB ONE (11:55)
[2023-07-21] MEDS: BUPIVACAINE HCL/PF 0.25% (2.5MG/ML) 10 ML VIAL IJ ONE (12:09)
[2023-07-21] MEDS ORDERED: HYDROmorphone HCl 2 MG/ML VIAL ONE (12:36)
[2023-07-21] MEDS ORDERED: MINERAL OIL/PETROLATUM,WHITE 3.5 GM TUBE ONE (13:04)
[2023-07-21] MEDS ORDERED: SUGAMMADEX SODIUM 200 MG/2 ML VIAL ONE (13:05)
[2023-07-21] MEDS ORDERED: oxyCODONE HCL 5 MG TABLET PO PRN (13:42)
[2023-07-21] MEDS: LACTATED RINGERS SOLUTION 1,000 ML IV SCH (14:00)
[2023-07-21] MEDS ORDERED: ACETAMINOPHEN INJECTION 100 ML IVPB ONE (14:08)
[2023-07-21] MEDS: ACETAMINOPHEN 1000 MG/100 ML BAG IVPB SCH (14:10)
[2023-07-21] MEDS: ONDANSETRON 4 MG/2 ML VIAL IVPUSH PRN (14:50)
[2023-07-21] MEDS ORDERED: ONDANSETRON 4 MG/2 ML VIAL ONE (14:58)
[2023-07-21] MEDS: DEXTROSE 5%-LACTATED RINGERS 1,000 ML IV SCH (15:40)
[2023-07-21] MEDS: ACETAMINOPHEN 325 MG TABLET (FP) PO SCH (15:56)
[2023-07-21] MEDS: TRIMETHOBENZAMIDE HCL 200MG/2ML INJ IM ONE (18:28)
[2023-07-22] MEDS: DEXTROSE 5%-LACTATED RINGERS 1,000 ML IV SCH (01:16)
[2023-07-22 02:03] VITALS: RESP 18; TEMP 98.6
[2023-07-22] MEDS: oxyCODONE HCL 5 MG TABLET PO PRN (03:38)
[2023-07-22 07:16] LABS: BASO % 0.1 % (0-2.0); EOS % 0.1 % (0-4.5); HEMATOCRIT 31.6 % (32.4-45.2); HEMOGLOBIN 10.3 GM/dL (10.7-15.3); LYMPH % 12.3 % (8-40); MCH 28.8 pg (25.7-33.7); MCHC 32.5 g/dl (32.0-36.0); MEAN CELL VOLUME 88.4 fl (80-96); MEAN PLT VOLUME 8.4 fl (7.5-11.1); MONO % 8.5 % (3.8-10.2); PLATELET COUNT 262 10^3/uL (134-434); RBC 3.58 M/mm3 (3.60-5.2); RDW 15.7 % (11.6-15.6); WHITE BLOOD COUNT 11.2 K/mm3 (4.0-10.0)
[2023-07-22 07:31] LABS: POTASSIUM 3.7 mmol/L (3.5-5.1)
[2023-07-22 07:33] LABS: CALCIUM 10.1 mg/dL (8.5-10.1)
[2023-07-22 07:34] LABS: BLOOD UREA NITROGEN 3.2 mg/dL (7-18)
[2023-07-22 07:37] LABS: CREATININE 0.5 mg/dL (0.55-1.3)
[2023-07-22 07:39] LABS: BILIRUBIN,TOTAL 0.6 mg/dL (0.2-1); TOT PROT 6.3 g/dl (6.4-8.2)
[2023-07-22 07:42] LABS: ALBUMIN 2.9 g/dl (3.4-5.0)
[2023-07-22 12:41] VITALS: BP 108/78; PULSE 90
[2023-07-22] MEDS ORDERED: ACETAMINOPHEN 1000 MG/100 ML BAG IVPB PRN (14:30)
== END 2023-07-22 13:22 | disposition home or self-care (01) ==
LOC: JER 06:19 → UNDOADMOB 11:21 → JERBED 11:21 → J7W 20:28 → JERBED 20:28 → JASUSAT 07-21 18:53 → SUATTDRO 07-21 18:53 → J7W 07-21 18:56 → JASUSAT 07-22 13:22
PROVIDERS: ATTEND Nurse Practitioner
PROC: 3E033GC Introduction of Other Therapeutic Substance into Peripheral Vein, Percutaneous Approach (ICD-10-PCS; principal; 2023-07-20)
PROC: 3E030NZ Introduction of Analgesics, Hypnotics, Sedatives into Peripheral Vein, Open Approach (ICD-10-PCS; 2023-07-20)
PROC: 3E0303Z Introduction of Anti-inflammatory into Peripheral Vein, Open Approach (ICD-10-PCS; 2023-07-20)
PROC: 3E0303Z Introduction of Anti-inflammatory into Peripheral Vein, Open Approach (ICD-10-PCS; 2023-07-20)
PROC: 3E030GC Introduction of Other Therapeutic Substance into Peripheral Vein, Open Approach (ICD-10-PCS; 2023-07-20)
PROC: 3E030GC Introduction of Other Therapeutic Substance into Peripheral Vein, Open Approach (ICD-10-PCS; 2023-07-20)
DX: R10.11 Right upper quadrant pain (principal); R11.2 Nausea with vomiting, unspecified; R68.83 Chills (without fever); K80.70 Calculus of gallbladder and bile duct without cholecystitis without obstruction
CPT/HCPCS: 36415; 76705-TC; 80048; 80053; 81003; 83605; 83690; 84703; 85025; 85610; 85730; 86850; 86900; 86901; 87086; 87186; 88304-TC; 93005; 93010; 94760; 99285-25; J0131

== ENCOUNTER 2023-10-27 04:45 | Day surgery (SDC) | payer OTHER ==
[2023-10-20 15:23] VITALS: BMI 35.8
[2023-10-27 09:23] VITALS: BP 113/73; PULSE 68; RESP 20; TEMP 98.2
== END 2023-10-27 12:30 | disposition home or self-care (01) ==
LOC: JASU-SURG 04:45
PROVIDERS: ATTEND Urology
DX: Z53.8 Procedure and treatment not carried out for other reasons (principal)

== ENCOUNTER → 2023-11-10 | Day surgery (SDC) | payer OTHER ==
[2023-11-07 18:01] VITALS: BMI 36.0
[~2023-11-10] MED LIST: ACETAMINOPHEN 500 MG TABLET (FP) ONE; MIDAZOLAM HCL 2 MG/2 ML SINGLE DOSE VIAL ONE
[2023-11-10 09:22] VITALS: RESP 18
[2023-11-10 12:59] VITALS: BP 118/65; PULSE 67; TEMP 97.8
== END | disposition home or self-care (01) ==
LOC: JASU-SURG 05:05
PROVIDERS: ATTEND Urology
PROC: 0TF3XZZ Fragmentation in Right Kidney Pelvis, External Approach (ICD-10-PCS; principal; 2023-11-10 10:07)
DX: N20.0 Calculus of kidney (principal)
CPT/HCPCS: 81025

== ENCOUNTER 2023-11-16 13:34 | Emergency (ER) | payer OTHER ==
[2023-11-16 13:45] VITALS: BP 128/87; PULSE 80; RESP 16; TEMP 98.4; BMI 34.0
[2023-11-16] MEDS ORDERED: LIDOCAINE 4% PATCH TP ONE (14:18)
[2023-11-16] MEDS ORDERED: ACETAMINOPHEN 325 MG TABLET (FP) ONE (14:18)
[2023-11-16] MEDS ORDERED: LIDOCAINE 5% TOPICAL PATCH ONE (14:18)
[2023-11-16] MEDS ORDERED: METHOCARBAMOL 500 MG TABLET ONE (14:20)
[2023-11-16] MEDS: LIDOCAINE 4% PATCH TP ONE (14:34)
[2023-11-16] MEDS: METHOCARBAMOL 500 MG TABLET PO ONE (14:34)
[2023-11-16] MEDS: ACETAMINOPHEN 500 MG TABLET (FP) PO ONE (14:34)
[2023-11-16 14:38] LABS: EPI CELLS 17 /uL (0-25.1); HCG,QUALITATIVE URINE Negative; HYALINE CASTS 4 /uL (0-3.1); PH,URINE 5.5 (5.0-8.0); URINE APPEARANCE CLEAR; URINE BACTERIA >9,000 /uL (0-1359); URINE BILIRUBIN NEGATIVE (NEGATIVE); URINE COLOR YELLOW; URINE GLUCOSE (UA) NEGATIVE (NEGATIVE); URINE KETONE NEGATIVE (NEGATIVE); URINE LEUK ESTERASE 1+ (NEGATIVE); URINE NITRITE POSITIVE (NEGATIVE); URINE PROTEIN TRACE (NEGATIVE); URINE RBC 19 /uL (0-23.9); URINE UROBILINOGEN 0.2 mg/dL (0.2-1.0); URINE WBC 141 /uL (0-25.8)
[2023-11-16] MEDS ORDERED: CEFPODOXIME PROXETIL 200 MG TABLET [NF] PO ONE (16:00)
[2023-11-16] MEDS ORDERED: LIDOCAINE PATCH REMOVAL MC SCH (22:00)
== END 2023-11-16 15:02 | disposition home or self-care (01) ==
LOC: JER 13:34
DX: M54.50 Low back pain, unspecified (principal); N39.0 Urinary tract infection, site not specified
CPT/HCPCS: 81003; 84703; 87086; 87186; 99283-25

== ENCOUNTER 2024-05-17 10:20 | Emergency (ER) | payer OTHER ==
[2024-05-17 10:31] VITALS: BP 123/88; PULSE 82; RESP 17; TEMP 98.4; BMI 34.9
[2024-05-17] MEDS ORDERED: ALBUTEROL SO4 HFA INHALER IH ONE (11:59)
[2024-05-17] MEDS: ALBUTEROL SO4 HFA INHALER IH ONE (12:01)
[2024-05-17 13:00] LABS: HIV INTERPRETATION NEGATIVE (NEGATIVE)
== END 2024-05-17 12:03 | disposition home or self-care (01) ==
LOC: JER 10:20 → JERFT 10:20
DX: R05.9 Cough, unspecified (principal); Z20.822 Contact with and (suspected) exposure to COVID-19
CPT/HCPCS: 0241U-QW; 36415; 86803; 87389; 99283-25

== ENCOUNTER 2024-11-25 12:03 | Emergency (ER) | payer OTHER ==
[2024-11-25 12:47] VITALS: BP 133/78; PULSE 97; RESP 18; TEMP 98.6; BMI 35.0
[2024-11-25] MEDS ORDERED: ACETAMINOPHEN INJECTION 100 ML ONE (13:07)
[2024-11-25] MEDS: SODIUM CHLORIDE 0.9% 500 ML INFUS.BAG IV ONE (13:14)
[2024-11-25] MEDS: ACETAMINOPHEN 1000 MG/100 ML BAG IVPB ONE (13:14)
[2024-11-25 13:25] LABS: ABSOLUTE IMMATURE GRANULOCYTES 0.02 x10^3/uL (0.0-0.031); BASOPHILS # 0.02 x10^3/uL (0.01-0.08); EOSINOPHIL % 0.6 % (0.7-5.8); EOSINOPHILS # 0.05 x10^3/uL (0.04-0.36); MCHC 32.6 g/dl (32.2-35.5); MEAN CELL VOLUME 95.6 fl (79.4-94.8); MEAN PLT VOLUME 10.0 fl (9.4-12.3); MONOCYTE # 0.62 x10^3/uL (0.24-0.86); MONOCYTE % 7.6 % (4.7-12.5); RDW 12.5 % (12.1-16.8)
[2024-11-25 13:26] LABS: URINE APPEARANCE CLEAR; URINE BILIRUBIN NEGATIVE (NEGATIVE); URINE COLOR YELLOW; URINE GLUCOSE (UA) NEGATIVE (NEGATIVE); URINE KETONE NEGATIVE (NEGATIVE); URINE LEUK ESTERASE NEGATIVE (NEGATIVE); URINE NITRITE NEGATIVE (NEGATIVE); URINE PROTEIN NEGATIVE (NEGATIVE); URINE UROBILINOGEN 0.2 mg/dL (0.2-1.0)
[2024-11-25 13:46] LABS: GLUCOSE,RANDOM 89.0 mg/dL (74-106)
[2024-11-25 13:48] LABS: CO2 29.0 mmol/L (21-32)
[2024-11-25 13:49] LABS: CREATININE 0.6 mg/dL (0.55-1.3)
[2024-11-25 13:50] LABS: SGOT/AST 15.0 U/L (15-37); SGPT/ALT 18.0 U/L (13-61)
[2024-11-25 13:51] LABS: TOT PROT 7.5 g/dl (6.4-8.2)
[2024-11-25 13:52] LABS: ALK PHOS 121.0 U/L (45-117)
[2024-11-25] MEDS ORDERED: KETOROLAC TROMETHAMINE 30 MG/1 ML VIAL ONE (14:50)
[2024-11-25] MEDS: KETOROLAC TROMETHAMINE 30 MG/1 ML VIAL IVPUSH ONE (14:55)
[2024-11-28 03:21] LABS: HCV DIAGNOSTIC IN-HOUSE W/RFLX NON-REACTIVE (NONREACTIVE)
[2024-11-28 04:34] LABS: HIV INTERPRETATION NEGATIVE (NEGATIVE)
== END 2024-11-25 15:36 | disposition home or self-care (01) ==
LOC: JER 12:03
PROC: 3E033NZ Introduction of Analgesics, Hypnotics, Sedatives into Peripheral Vein, Percutaneous Approach (ICD-10-PCS; principal; 2024-11-25)
PROC: 3E0333Z Introduction of Anti-inflammatory into Peripheral Vein, Percutaneous Approach (ICD-10-PCS; 2024-11-25)
DX: M54.41 Lumbago with sciatica, right side (principal); R10.9 Unspecified abdominal pain; M25.551 Pain in right hip
CPT/HCPCS: 36415; 74176-TC; 80053; 81003; 84703; 85025; 86803; 87086; 87389; 99285-25